=== PATIENT | male | born 2000 | race Caucasian/White ===

== ENCOUNTER 2020-08-01 10:31 | Inpatient (IN) | payer BC, MEDICAID ==
--- NOTE | 2020-08-01 10:35 | EDM.PDOC ---
ED HPI GENERAL MEDICAL PROBLEM - General Chief Complaint: Diabetic Complaint Stated Complaint: DIABETIC PROBLEM Time Seen by Provider: 08/01/20 10:35 Source of Information: Reports: Patient, Family, Old Records, RN, RN Notes Reviewed History Limitations: Reports: No Limitations - History of Present Illness INITIAL COMMENTS - FREE TEXT/NARRATIVE: Pt presents to ED via POV with c/o vomiting and hyperglycemia. Pt is a type 1 diabetic, and believes he is in DKA. Pt states that he started feeling nauseated last evening. Was able to have supper last night. Has been nauseated and v omiting this morning. Pt states that he has not checked his BG today. Pt states that his BG runs "high" when asked to elaborate he said 200's-300's. Pt also has c/o diffuse abdominal cramps and pain which precede vomiting. Onset: Gradual Onset Date: 07/31/20 Onset Time: 20:00 Duration: Getting Worse Location: Reports: Abdomen, Generalized Severity: Moderate Improves with: Reports: None Worsens with: Reports: None Associated Symptoms: Reports: No Other Symptoms Abdominal Pain Score (Numeric/FACES): 7 - Related Data Allergies Allergy/AdvReac Type Severity Reaction Status Date / Time No Known Allergies Allergy Verified 01/28/15 13:40 Home Meds: Home Meds Insulin Aspart [Novolog] 1 units SUBCUT QID 01/02/16 [History] Insulin Glarg,Human.Rec.Analog [LantUS Solostar] 12 units SUBCUT DAILY 01/02/16 [History] Methylphenidate HCl [Methylphenidate ER] 1 tab PO DAILY 01/02/16 [History] Past Medical History Endocrine/Metabolic History: Reports: Diabetes, Type I, IDDM, Obesity/BMI 30+, Other (See Below) (DKA) Social & Family History - Family History Family Medical History: No Pertinent Family History - Caffeine Use Caffeine Use: Reports: None - Sexual History Sexual History: Reports: None - Living Situation & Occupation Living situation: Reports: with Family Occupation: Student ED ROS GENERAL - Review of Systems Review Of Systems: Comprehensive ROS is negative, except as noted in HPI. ED EXAM GENERAL NO PERIP PULSE - Physical Exam Exam: See Below Exam Limited By: No Limitations General Appearance: Alert, WD/WN, No Apparent Distress, Other (Active emesis) Eye Exam: Bilateral Eye: EOMI, Normal Inspection Ears: Normal External Exam, Hearing Grossly Normal Nose: Normal Inspection, No Blood Throat/Mouth: Normal Lips, Normal Voice, No Airway Compromise, Other (Dry oral mucosa) Head: Atraumatic, Normocephalic Neck: Normal Inspection Respiratory/Chest: No Respiratory Distress, Lungs Clear, Normal Breath Sounds, No Accessory Muscle Use, Chest Non-Tender Cardiovascular: Regular Rate, Rhythm, No Edema, Tachycardia GI/Abdominal: Normal Bowel Sounds, Soft, Non-Tender, No Organomegaly, No Distention, No Abnormal Bruit, No Mass Back Exam: Normal Inspection Extremities: Normal Inspection, Normal Range of Motion, Non-Tender, Normal Capillary Refill, No Pedal Edema Neurological: Alert, Oriented, CN II-XII Intact, Normal Cognition, No Motor/Sensory Deficits Psychiatric: Normal Mood Skin Exam: Warm, Dry, Intact, Normal Color, No Rash Course - Vital Signs Last Recorded V/S: Last Vital Signs Temp 96.3 F L 08/01/20 10:39 Pulse 113 H 08/01/20 10:39 Resp 20 08/01/20 10:39 BP 138/84 08/01/20 10:39 Pulse Ox 100 08/01/20 10:39 - Orders/Labs/Meds Orders: Active Orders 24 hr Category Date Time Status Blood Glucose Check, Bedside [RC] ONETIME Care 08/01/20 10:45 Active Peripheral IV Care [RC] . DIRECTED Care 08/01/20 10:47 Active CULTURE BLOOD [BC] Stat Lab 08/01/20 10:42 Results CULTURE BLOOD [BC] Stat Lab 08/01/20 11:22 Received DRUG SCREEN URINE BIORAD [URCHEM] Stat Lab 08/01/20 10:46 Ordered UA RFX WILL AND CULT IF INDIC [URIN] Stat Lab 08/01/20 10:46 Ordered Sodium Chloride 0.9% [Normal Saline] 1,000 ml Med 08/01/20 10:46 Active IV .BOLUS Sodium Chloride 0.9% [Saline Flush] Med 08/01/20 10:46 Active 10 ml FLUSH ASDIRECTED PRN Blood Culture x2 Reflex Set [OM.PC] Stat Oth 08/01/20 10:45 Ordered Peripheral IV Insertion Adult [OM.PC] Stat Oth 08/01/20 10:46 Ordered Medication Orders Sodium Chloride (Normal Saline) 1,000 mls @ 999 mls/hr IV .BOLUS ONE Stop: 08/01/20 11:46 Last Admin: 08/01/20 10:49 Dose: 999 mls/hr Documented by: CONCETTA Sodium Chloride (Saline Flush) 10 ml FLUSH ASDIRECTED PRN PRN Reason: Keep Vein Open Last Admin: 08/01/20 10:50 Dose: 10 ml Documented by: CONCETTA Labs: Laboratory Tests 08/01/20 08/01/20 08/01/20 Range/Units 10:36 10:42 10:42 WBC 10.6 H (5.0-10.0) 10^3/uL RBC 5.58 (4.6-6.2) 10^6/uL Hgb 17.0 D (14.0-18.0) g/dL Hct 47.2 (40.0-54.0) % MCV 84.6 D (80-100) fL MCH 30.5 (27.0-34.0) pg MCHC 36.0 H (33.0-35.0) g/dL Plt Count 335 (150-450) 10^3/uL Neut % (Auto) 71.2 (42.2-75.2) % Lymph % (Auto) 21.1 (20.5-50.1) % [place] % (Auto) 5.3 (2-8) % Eos % (Auto) 0.8 L (1.0-3.0) % Baso % (Auto) 1.6 H (0.0-1.0) % ABG pH (7.35-7.45) ABG pCO2 (35-45) mmHg ABG pO2 (70-100) mmHg ABG HCO3 (22-26) mmol/L ABG O2 Saturation (95-100) % ABG Base Excess ((-2)-(+3)) mmol/L Lopez Test O2 Delivery Device Sodium 133 L (136-145) mmol/L Potassium 4.5 (3.5-5.1) mmol/L Chloride 92 L (98-107) mmol/L Carbon Dioxide 14 L (21-32) mmol/L Anion Gap 31.5 H (7-13) mEq/L BUN 19 H (7-18) mg/dL Creatinine 0.97 (0.70-1.30) mg/dL Est Cr Clr Drug Dosing 112.38 mL/min Estimated GFR (MDRD) > 60 BUN/Creatinine Ratio 19.6 (No establ ref range) Glucose 463 H* (74-99) mg/dL POC Glucose 454 H* (70-105) mg/dl Lactic Acid (0.4-2.0) mmol/L Calcium 9.6 (8.5-10.1) mg/dL Magnesium 1.8 (1.8-2.4) mg/dL Total Bilirubin 0.9 (0.2-1.0) mg/dL AST 19 (15-37) U/L ALT 33 (16-63) U/L Alkaline Phosphatase 129 H (46-116) U/L Troponin I < 0.017 (0.000-0.056) ng/mL Total Protein 8.6 H (6.4-8.2) g/dL Albumin 4.9 (3.4-5.0) g/dL Globulin 3.7 Albumin/Globulin Ratio 1.3 Amylase 23 L (25-115) U/L Lipase 36 L (73-393) U/L Ketones Small-20 mg/dl 08/01/20 08/01/20 Range/Units 10:42 10:59 WBC (5.0-10.0) 10^3/uL RBC (4.6-6.2) 10^6/uL Hgb (14.0-18.0) g/dL Hct (40.0-54.0) % MCV (80-100) fL MCH (27.0-34.0) pg MCHC (33.0-35.0) g/dL Plt Count (150-450) 10^3/uL Neut % (Auto) (42.2-75.2) % Lymph % (Auto) (20.5-50.1) % [place] % (Auto) (2-8) % Eos % (Auto) (1.0-3.0) % Baso % (Auto) (0.0-1.0) % ABG pH 7.19 L* (7.35-7.45) ABG pCO2 23 L (35-45) mmHg ABG pO2 117 H (70-100) mmHg ABG HCO3 8.2 L (22-26) mmol/L ABG O2 Saturation 97 (95-100) % ABG Base Excess -19 L ((-2)-(+3)) mmol/L Lopez Test Performed O2 Delivery Device Room air Sodium (136-145) mmol/L Potassium (3.5-5.1) mmol/L Chloride (98-107) mmol/L Carbon Dioxide (21-32) mmol/L Anion Gap (7-13) mEq/L BUN (7-18) mg/dL Creatinine (0.70-1.30) mg/dL Est Cr Clr Drug Dosing mL/min Estimated GFR (MDRD) BUN/Creatinine Ratio (No establ ref range) Glucose (74-99) mg/dL POC Glucose (70-105) mg/dl Lactic Acid 2.3 H* (0.4-2.0) mmol/L Calcium (8.5-10.1) mg/dL Magnesium (1.8-2.4) mg/dL Total Bilirubin (0.2-1.0) mg/dL AST (15-37) U/L ALT (16-63) U/L Alkaline Phosphatase (46-116) U/L Troponin I (0.000-0.056) ng/mL Total Protein (6.4-8.2) g/dL Albumin (3.4-5.0) g/dL Globulin Albumin/Globulin Ratio Amylase (25-115) U/L Lipase (73-393) U/L Ketones Meds: Medications Generic Name Dose Route Start Last Admin Trade Name Freq PRN Reason Stop Dose Admin Sodium Chloride 1,000 mls @ 999 mls/hr 08/01/20 10:46 08/01/20 10:49 Normal Saline IV 08/01/20 11:46 999 mls/hr .BOLUS ONE Administration Sodium Chloride 10 ml 08/01/20 10:46 08/01/20 10:50 Saline Flush FLUSH 10 ml ASDIRECTED PRN Administration Keep Vein Open Discontinued Medications Generic Name Dose Route Start Last Admin Trade Name Freq PRN Reason Stop Dose Admin Ondansetron HCl 4 mg 08/01/20 10:44 08/01/20 10:50 Zofran IVPUSH 08/01/20 10:45 4 mg ONETIME ONE Administration Ondansetron HCl 4 mg 08/01/20 10:46 08/01/20 10:49 Zofran IV 08/01/20 10:47 4 mg ONETIME ONE Administration Ondansetron HCl Confirm 08/01/20 10:45 08/01/20 10:52 Zofran Administered 08/01/20 10:46 Not Given Dose 4 mg .ROUTE .STK-MED ONE Sodium Bicarbonate 50 meq 08/01/20 11:02 08/01/20 11:14 Sodium Bicarbonate 8.4% IVPUSH 08/01/20 11:03 50 meq ONETIME ONE Administration Departure - Departure Time of Disposition: 11:40 (admitted to Dr. Galan) Disposition: Admitted As Inpatient 66 Condition: Fair, Serious Clinical Impression: Ketoacidosis due to type 1 diabetes mellitus Qualifiers: Diabetes mellitus complication detail: without coma Qualified Code(s): E10.10 - Type 1 diabetes mellitus with ketoacidosis without coma - Discharge Information *PRESCRIPTION DRUG MONITORING PROGRAM REVIEWED*: Not Applicable *COPY OF PRESCRIPTION DRUG MONITORING REPORT IN PATIENT JIMMIE: Not Applicable Forms: ED Department Discharge Sepsis Event Note (ED) - Focused Exam Vital Signs: Vital Signs Temp Pulse Resp BP Pulse Ox 08/01/20 10:39 96.3 F L 113 H 20 138/84 100 - My Orders Last 24 Hours: My Active Orders 08/01/20 10:42 CULTURE BLOOD [BC] Stat 08/01/20 10:45 Blood Glucose Check, Bedside [RC] ONETIME Blood Culture x2 Reflex Set [OM.PC] Stat 08/01/20 10:46 DRUG SCREEN URINE BIORAD [URCHEM] Stat UA RFX WILL AND CULT IF INDIC [URIN] Stat Sodium Chloride 0.9% [Normal Saline] 1,000 ml IV .BOLUS Sodium Chloride 0.9% [Saline Flush] 10 ml FLUSH ASDIRECTED PRN Peripheral IV Insertion Adult [OM.PC] Stat 08/01/20 10:47 Peripheral IV Care [RC] . DIRECTED 08/01/20 11:22 CULTURE BLOOD [BC] Stat - Assessment/Plan Last 24 Hours: My Active Orders 08/01/20 10:42 CULTURE BLOOD [BC] Stat 08/01/20 10:45 Blood Glucose Check, Bedside [RC] ONETIME Blood Culture x2 Reflex Set [OM.PC] Stat 08/01/20 10:46 DRUG SCREEN URINE BIORAD [URCHEM] Stat UA RFX WILL AND CULT IF INDIC [URIN] Stat Sodium Chloride 0.9% [Normal Saline] 1,000 ml IV .BOLUS Sodium Chloride 0.9% [Saline Flush] 10 ml FLUSH ASDIRECTED PRN Peripheral IV Insertion Adult [OM.PC] Stat 08/01/20 10:47 Peripheral IV Care [RC] . DIRECTED 08/01/20 11:22 CULTURE BLOOD [BC] Stat
[2020-08-01] MEDS ORDERED: Ondansetron 4 MG/2 ML SDV IVPUSH ONE (10:44)
[2020-08-01] MEDS ORDERED: Ondansetron 4 MG/2 ML SDV ONE (10:45)
[2020-08-01] MEDS ORDERED: Ondansetron 4 MG/2 ML SDV IV ONE (10:46)
[2020-08-01] MEDS ORDERED: Sodium Chloride 0.9% 10 ML Syringe FLUSH PRN (10:46)
[2020-08-01] MEDS ORDERED: Sodium Chloride 0.9% 1,000 ML IV ONE (10:46)
[2020-08-01 11:00] LABS: BASE EXCESS ARTERIAL -19 mmol/L ((-2)-(+3)); BICARBONATE,ARTERIAL 8.2 mmol/L (22-26); O2 DELIVERY DEVICE ROOM AIR; O2 SATURATION ARTERIAL 97 % (95-100); PCO2 ARTERIAL 23 mmHg (35-45); PO2 ARTERIAL 117 mmHg (70-100)
[2020-08-01 11:01] LABS: ALLEN TEST PERFORMED
[2020-08-01] MEDS ORDERED: Sodium Bicarbonate 8.4% 50 MEQ/50 ML Syringe IVPUSH ONE (11:02)
[2020-08-01 11:15] LABS: ANION GAP 31.5 mEq/L (7-13); CHLORIDE,CL 92 mmol/L (98-107); SODIUM,NA 133 mmol/L (136-145)
[2020-08-01] MEDS ORDERED: Ondansetron 4 MG/2 ML SDV IVPUSH PRN (12:49)
[2020-08-01] MEDS ORDERED: Sodium Chloride 0.9% 1,000 ML IV SCH (13:00)
--- NOTE | 2020-08-01 13:05 | PCM.HP ---
H&P History of Present Illness - General Date of Service: 08/01/20 Admit Problem/Dx: Admission Diagnosis/Problem Admission Diagnosis/Problem Diabetes mellitus type 1 Source of Information: Patient - History of Present Illness Initial Comments - Free Text/Narative: is a 19-year-old man with medical history of type 1 diabetes mellitus diagnosed 7 years ago. The patient presented to the emergency room because of nausea and vomiting which has been going on since yesterday. He has lost count of the nu mber of times he vomited. Has associated generalized body malaise and weakness. He came to the emergency room and was found to be hyperglycemic and also noted to have significant metabolic acidosis with pH of 7.19.patient admits to poor compliance with insulin use. Has missed some insulin doses especially the long acting. Abdominal Pain Score (Numeric/FACES): 7 - Related Data Allergies/Adverse Reactions: Allergies Allergy/AdvReac Type Severity Reaction Status Date / Time gluten AdvReac Abdominal Verified 08/01/20 12:38 Pain Home Medications: Home Meds Insulin Glargine,Hum.Rec.Anlog [Toujeo Solostar] 40 units SQ BEDTIME 08/01/20 [History] Insulin Lispro [HumaLOG] 15 units SQ TIDMEALS 08/01/20 [History] Past Medical History Endocrine/Metabolic History: Reports: Diabetes, Type I, IDDM, Obesity/BMI 30+, Other (See Below) (DKA) Social & Family History - Family History Family Medical History: No Pertinent Family History - Tobacco Use Tobacco Use Status *Q: Never Tobacco User Second Hand Smoke Exposure: No - Caffeine Use Caffeine Use: Reports: Coffee, Energy Drinks, Soda - Recreational Drug Use Recreational Drug Use: No - Sexual History Sexual History: Reports: None - Living Situation & Occupation Living situation: Reports: with Family Occupation: Student H&P Review of Systems - Review of Systems: Review Of Systems: See Below General: Reports: Malaise, Weakness, Fatigue HEENT: Reports: No Symptoms Pulmonary: Reports: No Symptoms Gastrointestinal: Reports: Nausea, Vomiting Neurological: Reports: Headache Exam - Exam Exam: See Below - Vital Signs Vital Signs: Last Vital Signs Temp 35.7 C L 08/01/20 10:39 Pulse 113 H 08/01/20 10:39 Resp 20 08/01/20 10:39 BP 138/84 08/01/20 10:39 Pulse Ox 100 08/01/20 10:39 Weight: 70.488 kg - Exam General: Alert, Oriented, Cooperative HEENT: PERRLA, Hearing Intact, Mucosa Moist & [place], Nares Patent, Normal Nasal Septum, Posterior Pharynx Clear, Conjunctiva Clear, EOMI, EACs Clear, TMs Clear Neck: Supple, Trachea Midline, 2 Lungs: Clear to Auscultation, Normal Respiratory Effort Cardiovascular: Regular Rate, Regular Rhythm GI/Abdominal Exam: Normal Bowel Sounds, Soft, Non-Tender, No Organomegaly, No Distention, No Abnormal Bruit, No Mass, Pelvis Stable Back Exam: Normal Inspection, Full Range of Motion, NT Extremities: Normal Inspection, Normal Range of Motion, Non-Tender, No Pedal Edema, Normal Capillary Refill - Patient Data Lab Results Last 24 hrs: Laboratory Results - last 24 hr 08/01/20 08/01/20 08/01/20 Range/Units 10:36 10:42 10:42 WBC 10.6 H (5.0-10.0) 10^3/uL RBC 5.58 (4.6-6.2) 10^6/uL Hgb 17.0 D (14.0-18.0) g/dL Hct 47.2 (40.0-54.0) % MCV 84.6 D (80-100) fL MCH 30.5 (27.0-34.0) pg MCHC 36.0 H (33.0-35.0) g/dL Plt Count 335 (150-450) 10^3/uL Neut % (Auto) 71.2 (42.2-75.2) % Lymph % (Auto) 21.1 (20.5-50.1) % Long % (Auto) 5.3 (2-8) % Eos % (Auto) 0.8 L (1.0-3.0) % Baso % (Auto) 1.6 H (0.0-1.0) % ABG pH (7.35-7.45) ABG pCO2 (35-45) mmHg ABG pO2 (70-100) mmHg ABG HCO3 (22-26) mmol/L ABG O2 Saturation (95-100) % ABG Base Excess ((-2)-(+3)) mmol/L Lopez Test O2 Delivery Device Sodium 133 L (136-145) mmol/L Potassium 4.5 (3.5-5.1) mmol/L Chloride 92 L (98-107) mmol/L Carbon Dioxide 14 L (21-32) mmol/L Anion Gap 31.5 H (7-13) mEq/L BUN 19 H (7-18) mg/dL Creatinine 0.97 (0.70-1.30) mg/dL Est Cr Clr Drug Dosing 112.38 mL/min Estimated GFR (MDRD) > 60 BUN/Creatinine Ratio 19.6 (No establ ref range) Glucose 463 H* (74-99) mg/dL POC Glucose 454 H* (70-105) mg/dl Lactic Acid (0.4-2.0) mmol/L Calcium 9.6 (8.5-10.1) mg/dL Magnesium 1.8 (1.8-2.4) mg/dL Total Bilirubin 0.9 (0.2-1.0) mg/dL AST 19 (15-37) U/L ALT 33 (16-63) U/L Alkaline Phosphatase 129 H (46-116) U/L Troponin I < 0.017 (0.000-0.056) ng/mL Total Protein 8.6 H (6.4-8.2) g/dL Albumin 4.9 (3.4-5.0) g/dL Globulin 3.7 Albumin/Globulin Ratio 1.3 Amylase 23 L (25-115) U/L Lipase 36 L (73-393) U/L Urine Color (YELLOW) Urine Appearance (CLEAR) Urine pH (5.0-9.0) Ur Specific [place] (1.005-1.030) Urine Protein (NEGATIVE) Urine Glucose (UA) (NEGATIVE) Urine Ketones (NEGATIVE) Urine Occult Blood (NEGATIVE) Urine Nitrite (NEGATIVE) Urine Bilirubin (NEGATIVE) Urine Urobilinogen (0.2-1.0) mg/dL Ur Leukocyte Esterase (NEGATIVE) Urine RBC /HPF Urine WBC (0-5/HPF) /HPF Ur Epithelial Cells (NOT SEEN) /HPF Urine Bacteria (0-FEW/HPF) /HPF Urine Opiates Screen (NEGATIVE) Ur Oxycodone Screen (NEGATIVE) Urine Methadone Screen (NEGATIVE) Ur Barbiturates Screen (NEGATIVE) U Tricyclic Antidepress (NEGATIVE) Ur Phencyclidine Scrn (NEGATIVE) Ur Amphetamine Screen (NEGATIVE) U Methamphetamines Scrn (NEGATIVE) Urine MDMA Screen (NEGATIVE) U Benzodiazepines Scrn (NEGATIVE) Urine Cocaine Screen (NEGATIVE) U Marijuana (THC) Screen (NEGATIVE) Ketones Small-20 mg/dl SARS CoV-2 RNA Rapid GEO (NEGATIVE) 08/01/20 08/01/20 08/01/20 Range/Units 10:42 10:59 11:43 WBC (5.0-10.0) 10^3/uL RBC (4.6-6.2) 10^6/uL Hgb (14.0-18.0) g/dL Hct (40.0-54.0) % MCV (80-100) fL MCH (27.0-34.0) pg MCHC (33.0-35.0) g/dL Plt Count (150-450) 10^3/uL Neut % (Auto) (42.2-75.2) % Lymph % (Auto) (20.5-50.1) % Long % (Auto) (2-8) % Eos % (Auto) (1.0-3.0) % Baso % (Auto) (0.0-1.0) % ABG pH 7.19 L* (7.35-7.45) ABG pCO2 23 L (35-45) mmHg ABG pO2 117 H (70-100) mmHg ABG HCO3 8.2 L (22-26) mmol/L ABG O2 Saturation 97 (95-100) % ABG Base Excess -19 L ((-2)-(+3)) mmol/L Lopez Test Performed O2 Delivery Device Room air Sodium (136-145) mmol/L Potassium (3.5-5.1) mmol/L Chloride (98-107) mmol/L Carbon Dioxide (21-32) mmol/L Anion Gap (7-13) mEq/L BUN (7-18) mg/dL Creatinine (0.70-1.30) mg/dL Est Cr Clr Drug Dosing mL/min Estimated GFR (MDRD) BUN/Creatinine Ratio (No establ ref range) Glucose (74-99) mg/dL POC Glucose (70-105) mg/dl Lactic Acid 2.3 H* (0.4-2.0) mmol/L Calcium (8.5-10.1) mg/dL Magnesium (1.8-2.4) mg/dL Total Bilirubin (0.2-1.0) mg/dL AST (15-37) U/L ALT (16-63) U/L Alkaline Phosphatase (46-116) U/L Troponin I (0.000-0.056) ng/mL Total Protein (6.4-8.2) g/dL Albumin (3.4-5.0) g/dL Globulin Albumin/Globulin Ratio Amylase (25-115) U/L Lipase (73-393) U/L Urine Color (YELLOW) Urine Appearance (CLEAR) Urine pH (5.0-9.0) Ur Specific [place] (1.005-1.030) Urine Protein (NEGATIVE) Urine Glucose (UA) (NEGATIVE) Urine Ketones (NEGATIVE) Urine Occult Blood (NEGATIVE) Urine Nitrite (NEGATIVE) Urine Bilirubin (NEGATIVE) Urine Urobilinogen (0.2-1.0) mg/dL Ur Leukocyte Esterase (NEGATIVE) Urine RBC /HPF Urine WBC (0-5/HPF) /HPF Ur Epithelial Cells (NOT SEEN) /HPF Urine Bacteria (0-FEW/HPF) /HPF Urine Opiates Screen (NEGATIVE) Ur Oxycodone Screen (NEGATIVE) Urine Methadone Screen (NEGATIVE) Ur Barbiturates Screen (NEGATIVE) U Tricyclic Antidepress (NEGATIVE) Ur Phencyclidine Scrn (NEGATIVE) Ur Amphetamine Screen (NEGATIVE) U Methamphetamines Scrn (NEGATIVE) Urine MDMA Screen (NEGATIVE) U Benzodiazepines Scrn (NEGATIVE) Urine Cocaine Screen (NEGATIVE) U Marijuana (THC) Screen (NEGATIVE) Ketones SARS CoV-2 RNA Rapid GEO Negative (NEGATIVE) 08/01/20 08/01/20 Range/Units 11:48 11:48 WBC (5.0-10.0) 10^3/uL RBC (4.6-6.2) 10^6/uL Hgb (14.0-18.0) g/dL Hct (40.0-54.0) % MCV (80-100) fL MCH (27.0-34.0) pg MCHC (33.0-35.0) g/dL Plt Count (150-450) 10^3/uL Neut % (Auto) (42.2-75.2) % Lymph % (Auto) (20.5-50.1) % Long % (Auto) (2-8) % Eos % (Auto) (1.0-3.0) % Baso % (Auto) (0.0-1.0) % ABG pH (7.35-7.45) ABG pCO2 (35-45) mmHg ABG pO2 (70-100) mmHg ABG HCO3 (22-26) mmol/L ABG O2 Saturation (95-100) % ABG Base Excess ((-2)-(+3)) mmol/L Lopez Test O2 Delivery Device Sodium (136-145) mmol/L Potassium (3.5-5.1) mmol/L Chloride (98-107) mmol/L Carbon Dioxide (21-32) mmol/L Anion Gap (7-13) mEq/L BUN (7-18) mg/dL Creatinine (0.70-1.30) mg/dL Est Cr Clr Drug Dosing mL/min Estimated GFR (MDRD) BUN/Creatinine Ratio (No establ ref range) Glucose (74-99) mg/dL POC Glucose (70-105) mg/dl Lactic Acid (0.4-2.0) mmol/L Calcium (8.5-10.1) mg/dL Magnesium (1.8-2.4) mg/dL Total Bilirubin (0.2-1.0) mg/dL AST (15-37) U/L ALT (16-63) U/L Alkaline Phosphatase (46-116) U/L Troponin I (0.000-0.056) ng/mL Total Protein (6.4-8.2) g/dL Albumin (3.4-5.0) g/dL Globulin Albumin/Globulin Ratio Amylase (25-115) U/L Lipase (73-393) U/L Urine Color Yellow (YELLOW) Urine Appearance Clear (CLEAR) Urine pH 5.5 (5.0-9.0) Ur Specific [place] >= 1.030 (1.005-1.030) Urine Protein 30 H (NEGATIVE) Urine Glucose (UA) 500 H (NEGATIVE) Urine Ketones >=160 H (NEGATIVE) Urine Occult Blood Negative (NEGATIVE) Urine Nitrite Negative (NEGATIVE) Urine Bilirubin Negative (NEGATIVE) Urine Urobilinogen 0.2 (0.2-1.0) mg/dL Ur Leukocyte Esterase Negative (NEGATIVE) Urine RBC 0-5 /HPF Urine WBC 0-5 (0-5/HPF) /HPF Ur Epithelial Cells Few (NOT SEEN) /HPF Urine Bacteria Not seen (0-FEW/HPF) /HPF Urine Opiates Screen Negative (NEGATIVE) Ur Oxycodone Screen Negative (NEGATIVE) Urine Methadone Screen Negative (NEGATIVE) Ur Barbiturates Screen Negative (NEGATIVE) U Tricyclic Antidepress Negative (NEGATIVE) Ur Phencyclidine Scrn Negative (NEGATIVE) Ur Amphetamine Screen Negative (NEGATIVE) U Methamphetamines Scrn Negative (NEGATIVE) Urine MDMA Screen Negative (NEGATIVE) U Benzodiazepines Scrn Negative (NEGATIVE) Urine Cocaine Screen Negative (NEGATIVE) U Marijuana (THC) Screen Negative (NEGATIVE) Ketones SARS CoV-2 RNA Rapid GEO (NEGATIVE) Result Diagrams: 08/01/20 10:42 08/01/20 10:42 Gerard Results Last 24 hrs: Microbiology 08/01/20 10:42 Anaerobic Blood Culture - Final Blood - Venous - Iv Start Problem List Initiated/Reviewed/Updated: Yes Orders Last 24hrs: Active Orders 24 hr Category Date Time Status Patient Status [ADT] Routine ADT 08/01/20 12:53 Ordered Cardiac Monitoring [RC] CONTINUOUS Care 08/01/20 12:54 Ordered Intake and Output [RC] QSHIFT Care 08/01/20 12:54 Ordered Oxygen Therapy [RC] PRN Care 08/01/20 12:53 Ordered Up ad Mirian [RC] ASDIRECTED Care 08/01/20 12:49 Ordered VTE/DVT Education [RC] PER UNIT ROUTINE Care 08/01/20 12:53 Ordered Vital Signs [RC] Q4H Care 08/01/20 12:53 Ordered BASIC METABOLIC PANEL,BMP [CHEM] Q6H Lab 08/01/20 15:57 Ordered BASIC METABOLIC PANEL,BMP [CHEM] Q6H Lab 08/01/20 21:57 Ordered BASIC METABOLIC PANEL,BMP [CHEM] Q6H Lab 08/02/20 03:57 Ordered CULTURE BLOOD [BC] Stat Lab 08/01/20 10:42 Results CULTURE BLOOD [BC] Stat Lab 08/01/20 11:22 Received MAGNESIUM [CHEM] Q6H Lab 08/01/20 15:58 Ordered MAGNESIUM [CHEM] Q6H Lab 08/01/20 21:58 Ordered MAGNESIUM [CHEM] Q6H Lab 08/02/20 03:58 Ordered PHOSPHORUS [CHEM] Routine Lab 08/02/20 06:59 Ordered Acetaminophen [TylenoL] Med 08/01/20 12:49 Ordered 650 mg PO Q4H PRN Enoxaparin [Lovenox] Med 08/02/20 09:00 Ordered 40 mg SUBCUT DAILY Insulin Regular in 0.9 % NACL @ 0.1 UNITS/KG/HR (100ml) Med 08/01/20 13:00 Ordered Insulin Regular in 0.9 % NACL [Myxredlin in NS 100 UNIT /100 ML] 100 unit in 100 ml IV TITRATE Ondansetron [Zofran] Med 08/01/20 12:49 Ordered 4 mg IVPUSH Q6H PRN Sodium Chloride 0.9% [Normal Saline] 1,000 ml Med 08/01/20 13:00 Ordered IV ASDIRECTED Sodium Chloride 0.9% [Saline Flush] Med 08/01/20 10:46 Active 10 ml FLUSH ASDIRECTED PRN Blood Culture x2 Reflex Set [OM.PC] Stat Oth 08/01/20 10:45 Ordered Peripheral IV Insertion Adult [OM.PC] Stat Oth 08/01/20 10:46 Ordered Resuscitation Status Routine Resus Stat 08/01/20 12:49 Ordered Medication Orders Acetaminophen (Tylenol) 650 mg PO Q4H PRN PRN Reason: Pain (Mild 1-3)/fever Enoxaparin Sodium (Lovenox) 40 mg SUBCUT DAILY HANG Sodium Chloride (Normal Saline) 1,000 mls @ 150 mls/hr IV ASDIRECTED HANG Insulin Regular in 0.9 % NACL (Myxredlin In Ns 100 Unit/100 Ml) 100 unit in 100 mls @ 7.049 mls/hr IV TITRATE HANG; Protocol Ondansetron HCl (Zofran) 4 mg IVPUSH Q6H PRN PRN Reason: Nausea/Vomiting Sodium Chloride (Saline Flush) 10 ml FLUSH ASDIRECTED PRN PRN Reason: Keep Vein Open Last Admin: 08/01/20 10:50 Dose: 10 ml Documented by: CONCETTA Assessment/Plan Comment:: assessment/plan: #. Diabetic ketoacidosis Patient has type 1 diabetes mellitus Has not been fully compliant with insulin use now presents with diabetic ketoacidosis #. Lactic acidosis Lactic acid is elevated up to 2.3 #. Anion gap metabolic acidosis anion gap is elevated up to 32 Plan: Admit patient to medical floor Start patient on continuous intravenous insulin Intravenous fluid with normal saline going at 1 50 mL an hour Obtain basic metabolic panel every 6 hours Obtain serum magnesium level every 6 hours
[2020-08-01] MEDS ORDERED: Metoclopramide 10 MG/2 ML SDV IVPUSH PRN (13:13)
[2020-08-01] MEDS: Acetaminophen 325 MG Tab PO PRN ×2 (13:28→21:22)
[2020-08-01 16:20] LABS: ANION GAP 26.3 mEq/L (7-13); CHLORIDE,CL 100 mmol/L (98-107); SODIUM,NA 136 mmol/L (136-145)
[2020-08-01] MEDS ORDERED: D5 1/2 NS w/ 10 mEq/L KCl 1,000 ML IV SCH (18:15)
[2020-08-01] MEDS ORDERED: 50% Dextrose in Water 50 ML Syringe ONE (20:43)
[2020-08-01] MEDS ORDERED: 50% Dextrose in Water 50 ML Syringe IVPUSH ONE (20:47)
[2020-08-01] MEDS ORDERED: Insulin Glarg,Human.Rec.Analog 100 Unit/ML SUBCUT ONE (20:49)
[2020-08-01] MEDS ORDERED: Glucagon,Human Recombinant 1 MG Vial IM PRN ×2 (20:49→20:54)
[2020-08-01] MEDS ORDERED: 50% Dextrose in Water 50 ML Syringe IV PRN (20:49)
[2020-08-01] MEDS: Sodium Chloride 0.45% with KCl 1,000 ML IV SCH (21:08)
[2020-08-01] MEDS: Insulin Lispro 100 Units/ML 3 ML Vial SUBCUT SCH (21:17)
[2020-08-01 21:18] LABS: ANION GAP 17.4 mEq/L (7-13); CHLORIDE,CL 100 mmol/L (98-107); SODIUM,NA 134 mmol/L (136-145)
[2020-08-02 04:25] LABS: ANION GAP 17.1 mEq/L (7-13); CHLORIDE,CL 99 mmol/L (98-107); SODIUM,NA 133 mmol/L (136-145)
[2020-08-02] MEDS ORDERED: Magnesium Sulfate/D5W 1 GM/100 ML BAG IV ONE (05:00)
[2020-08-02] MEDS ORDERED: Magnesium Sulfate/D5W 2 GM/200 ML BAG IV ONE ×2 (05:00→06:00)
[2020-08-02] MEDS ORDERED: Magnesium Sulfate/Water 2 GM/50 ML BAG IV ONE (05:15)
[2020-08-02] MEDS: Sodium Chloride 0.45% with KCl 1,000 ML IV SCH (07:11)
[2020-08-02] MEDS: Insulin Lispro 100 Units/ML 3 ML Vial SUBCUT SCH ×4 (08:31→12:01)
[2020-08-02] MEDS ORDERED: Enoxaparin 40 MG/0.4 ML Syringe SUBCUT SCH (09:00)
[2020-08-02 11:23] LABS: ANION GAP 15.8 mEq/L (7-13); CHLORIDE,CL 98 mmol/L (98-107); SODIUM,NA 133 mmol/L (136-145)
--- NOTE | 2020-08-02 12:35 | PCM.DCSUM1 ---
Discharge Summary - Hospital Course Free Text/Narrative:: h/o type 1 DM h/o poor compliance, BSs usually in the 2-300s presented with nausea, vomiting. found to have DKA with elevated anion gap and elevated lactic acid was treated with IVF, Insulin drip transitioned to SQ regimen has been tolerating PO intake will follow up with PMD discussed importance of DM control at his young age Diagnosis: Stroke: No - Discharge Data Discharge Date: 08/02/20 Discharge Disposition: Home, Self-Care 01 Condition: Good - Referral to Home Health Primary Care Physician: Bryn Munoz MD - Patient Instructions Diet: Diabetic Diet Activity: As Tolerated - Discharge Plan *PRESCRIPTION DRUG MONITORING PROGRAM REVIEWED*: Not Applicable *COPY OF PRESCRIPTION DRUG MONITORING REPORT IN PATIENT JIMMIE: Not Applicable Prescriptions/Med Rec: Metoclopramide HCl [Reglan] 10 mg PO Q6HR PRN #15 tablet PRN Reason: Nausea/Vomiting Home Medications: Home Meds Insulin Glargine,Hum.Rec.Anlog [Toujeo Solostar] 40 units SQ BEDTIME 08/01/20 [History] Insulin Lispro [HumaLOG] 15 units SQ TIDMEALS 08/01/20 [History] Metoclopramide HCl [Reglan] 10 mg PO Q6HR PRN #15 tablet 08/02/20 [Rx] Oxygen Therapy Mode: Room Air Patient Handouts: Diabetic Ketoacidosis, Type 1 Diabetes Mellitus, Self Care, Adult, Preventing Diabetic Ketoacidosis Referrals: Jean Koehler MD [Physician] - (in 2-3 days) - Discharge Summary/Plan Comment DC Time >30 min.: No - General Info Date of Service: 08/02/20 Functional Status: Reports: Pain Controlled - Review of Systems General: Denies: Fever, Weakness Pulmonary: Denies: Shortness of Breath Cardiovascular: Denies: Chest Pain Gastrointestinal: Denies: Abdominal Pain, Nausea, Vomiting Psychiatric: Denies: Confusion - Patient Data Vitals - Most Recent: Last Vital Signs Temp 98.0 F 08/02/20 07:51 Pulse 75 08/02/20 07:51 Resp 20 08/02/20 07:51 BP 112/56 L 08/02/20 07:51 Pulse Ox 100 08/02/20 07:51 Weight - Most Recent: 155 lb 6.4 oz I&O - Last 24 hours: Intake & Output 08/01/20 08/02/20 08/02/20 22:59 06:59 14:59 Intake Total 1200 1850 Balance 1200 1850 Lab Results - Last 24 hrs: Laboratory Results - last 24 hr 08/01/20 08/01/20 08/01/20 Range/Units 13:38 14:48 15:49 Sodium (136-145) mmol/L Potassium (3.5-5.1) mmol/L Chloride (98-107) mmol/L Carbon Dioxide (21-32) mmol/L Anion Gap (7-13) mEq/L BUN (7-18) mg/dL Creatinine (0.70-1.30) mg/dL Est Cr Clr Drug Dosing mL/min Estimated GFR (MDRD) Glucose (74-99) mg/dL POC Glucose 374 H 320 H 273 H (70-105) mg/dl Calcium (8.5-10.1) mg/dL Phosphorus (2.6-4.7) mg/dL Magnesium (1.8-2.4) mg/dL 08/01/20 08/01/20 08/01/20 Range/Units 15:59 16:50 18:03 Sodium 136 (136-145) mmol/L Potassium 4.3 (3.5-5.1) mmol/L Chloride 100 (98-107) mmol/L Carbon Dioxide 14 L (21-32) mmol/L Anion Gap 26.3 H (7-13) mEq/L BUN 15 (7-18) mg/dL Creatinine 0.88 (0.70-1.30) mg/dL Est Cr Clr Drug Dosing 134.61 mL/min Estimated GFR (MDRD) > 60 Glucose 248 H (74-99) mg/dL POC Glucose 191 H 161 H (70-105) mg/dl Calcium 8.6 (8.5-10.1) mg/dL Phosphorus (2.6-4.7) mg/dL Magnesium 1.7 L (1.8-2.4) mg/dL 08/01/20 08/01/20 08/01/20 Range/Units 19:21 20:32 20:56 Sodium 134 L (136-145) mmol/L Potassium 3.4 L (3.5-5.1) mmol/L Chloride 100 (98-107) mmol/L Carbon Dioxide 20 L (21-32) mmol/L Anion Gap 17.4 H (7-13) mEq/L BUN 13 (7-18) mg/dL Creatinine 0.78 (0.70-1.30) mg/dL Est Cr Clr Drug Dosing 151.87 mL/min Estimated GFR (MDRD) > 60 Glucose 126 H (74-99) mg/dL POC Glucose 132 H 63 L (70-105) mg/dl Calcium 8.4 L (8.5-10.1) mg/dL Phosphorus (2.6-4.7) mg/dL Magnesium (1.8-2.4) mg/dL 08/01/20 08/01/20 08/01/20 Range/Units 21:12 22:29 22:30 Sodium (136-145) mmol/L Potassium (3.5-5.1) mmol/L Chloride (98-107) mmol/L Carbon Dioxide (21-32) mmol/L Anion Gap (7-13) mEq/L BUN (7-18) mg/dL Creatinine (0.70-1.30) mg/dL Est Cr Clr Drug Dosing mL/min Estimated GFR (MDRD) Glucose (74-99) mg/dL POC Glucose 100 147 H (70-105) mg/dl Calcium (8.5-10.1) mg/dL Phosphorus (2.6-4.7) mg/dL Magnesium 1.5 L (1.8-2.4) mg/dL 08/02/20 08/02/20 08/02/20 Range/Units 04:00 04:00 04:00 Sodium 133 L (136-145) mmol/L Potassium 4.1 (3.5-5.1) mmol/L Chloride 99 (98-107) mmol/L Carbon Dioxide 21 (21-32) mmol/L Anion Gap 17.1 H (7-13) mEq/L BUN 12 (7-18) mg/dL Creatinine 0.68 L (0.70-1.30) mg/dL Est Cr Clr Drug Dosing 174.21 mL/min Estimated GFR (MDRD) > 60 Glucose 202 H (74-99) mg/dL POC Glucose (70-105) mg/dl Calcium 8.3 L (8.5-10.1) mg/dL Phosphorus 3.0 (2.6-4.7) mg/dL Magnesium 1.5 L (1.8-2.4) mg/dL 08/02/20 08/02/20 08/02/20 Range/Units 07:41 10:55 11:18 Sodium 133 L (136-145) mmol/L Potassium 3.8 (3.5-5.1) mmol/L Chloride 98 (98-107) mmol/L Carbon Dioxide 23 (21-32) mmol/L Anion Gap 15.8 H (7-13) mEq/L BUN 13 (7-18) mg/dL Creatinine 0.70 (0.70-1.30) mg/dL Est Cr Clr Drug Dosing 169.23 mL/min Estimated GFR (MDRD) > 60 Glucose 173 H (74-99) mg/dL POC Glucose 187 H 159 H (70-105) mg/dl Calcium 8.0 L (8.5-10.1) mg/dL Phosphorus (2.6-4.7) mg/dL Magnesium (1.8-2.4) mg/dL WILL Results - Last 24 hrs: Microbiology 08/01/20 11:22 Aerobic Blood Culture - Preliminary Blood - Arm, Right NO GROWTH AFTER 1 DAY Anaerobic Blood Culture - Preliminary NO GROWTH AFTER 1 DAY 08/01/20 10:42 Aerobic Blood Culture - Preliminary Blood - Venous - Iv Start NO GROWTH AFTER 1 DAY Anaerobic Blood Culture - Final Med Orders - Current: Current Medications Acetaminophen (Tylenol) 650 mg PO Q4H PRN PRN Reason: Pain (Mild 1-3)/fever Last Admin: 08/01/20 21:22 Dose: 650 mg Documented by: Dextrose/Water (Dextrose 50% In Water) 50 ml IV ASDIRECTED PRN PRN Reason: Hypoglycemia Enoxaparin Sodium (Lovenox) 40 mg SUBCUT DAILY [facility] Last Admin: 08/02/20 08:31 Dose: 40 mg Documented by: Glucagon (Glucagen) 1 mg IM ASDIRECTED PRN PRN Reason: Hypoglycemia Potassium Chloride/Sodium Chloride (1/2 Ns With 20 Meq Kcl) 1,000 mls @ 100 mls/hr IV ASDIRECTED HANG Last Admin: 08/02/20 07:11 Dose: 100 mls/hr Documented by: Insulin Glargine (Lantus) 40 unit SUBCUT BEDTIME [facility] Insulin Human Lispro (Humalog) 0 unit SUBCUT WITHMEALSANDBED [facility]; Protocol Last Admin: 08/02/20 12:00 Dose: 2 units Documented by: Insulin Human Lispro (Humalog) 15 unit SUBCUT TIDMEALS [facility] Last Admin: 08/02/20 12:01 Dose: 15 units Documented by: Metoclopramide HCl (Reglan) 10 mg IVPUSH Q6H PRN PRN Reason: Nausea and vomiting Last Admin: 08/01/20 13:30 Dose: 10 mg Documented by: Ondansetron HCl (Zofran) 4 mg IVPUSH Q6H PRN PRN Reason: Nausea/Vomiting Sodium Chloride (Saline Flush) 10 ml FLUSH ASDIRECTED PRN PRN Reason: Keep Vein Open Last Admin: 08/01/20 10:50 Dose: 10 ml Documented by: Discontinued Medications Dextrose/Water (Dextrose 50% In Water) Confirm Administered Dose 50 ml .ROUTE .STK-MED ONE Stop: 08/01/20 20:44 Last Admin: 08/01/20 21:17 Dose: Not Given Documented by: Dextrose/Water (Dextrose 50% In Water) 25 ml IVPUSH ONETIME ONE Stop: 08/01/20 20:48 Last Admin: 08/01/20 21:07 Dose: 25 ml Documented by: Glucagon (Glucagen) 1 mg IM ASDIRECTED PRN PRN Reason: Hypoglycemia Sodium Chloride (Normal Saline) 1,000 mls @ 999 mls/hr IV .BOLUS ONE Stop: 08/01/20 11:46 Last Admin: 08/01/20 10:49 Dose: 999 mls/hr Documented by: Sodium Chloride (Normal Saline) 1,000 mls @ 150 mls/hr IV ASDIRECTED [facility] Last Admin: 08/01/20 13:25 Dose: 150 mls/hr Documented by: Insulin Regular in 0.9 % NACL (Myxredlin In Ns 100 Unit/100 Ml) 100 unit in 100 mls @ 7.049 mls/hr IV TITRATE [facility]; Protocol Last Titration: 08/01/20 19:27 Dose: 0.25 units/kg/hr, 17.5 mls/hr Documented by: Potassium Chloride/Dextrose/Sod Cl (D5 1/2 Ns W/ 10 Meq/L Kcl) 1,000 mls @ 125 mls/hr IV ASDIRECTED [facility] Last Admin: 08/01/20 18:24 Dose: 125 mls/hr Documented by: Magnesium Sulfate (Magnesium Sulfate In Water 2 Gm/50 Ml) 2 gm in 50 mls @ 25 mls/hr IV ONETIME ONE Stop: 08/02/20 07:14 Last Admin: 08/02/20 05:18 Dose: 25 mls/hr Documented by: Insulin Glargine (Lantus) 40 unit SUBCUT ONETIME ONE Stop: 08/01/20 20:50 Last Admin: 08/01/20 21:09 Dose: 40 units Documented by: Ondansetron HCl (Zofran) 4 mg IVPUSH ONETIME ONE Stop: 08/01/20 10:45 Last Admin: 08/01/20 10:50 Dose: 4 mg Documented by: Ondansetron HCl (Zofran) 4 mg IV ONETIME ONE Stop: 08/01/20 10:47 Last Admin: 08/01/20 10:49 Dose: 4 mg Documented by: Ondansetron HCl (Zofran) Confirm Administered Dose 4 mg .ROUTE .STK-MED ONE Stop: 08/01/20 10:46 Last Admin: 08/01/20 10:52 Dose: Not Given Documented by: Sodium Bicarbonate (Sodium Bicarbonate 8.4%) 50 meq IVPUSH ONETIME ONE Stop: 08/01/20 11:03 Last Admin: 08/01/20 11:14 Dose: 50 meq Documented by: - Exam General: Reports: Alert, Oriented Neck: Reports: Supple Lungs: Reports: Clear to Auscultation, Normal Respiratory Effort Cardiovascular: Reports: Regular Rate, Regular Rhythm GI/Abdominal Exam: Normal Bowel Sounds, Soft, Non-Tender Skin: Reports: Warm, Dry, Intact Neurological: Reports: No New Focal Deficit Psy/Mental Status: Reports: Alert, Normal Affect, Normal Mood
[2020-08-02 12:52] VITALS: BP 114/58; PULSE 74
[2020-08-02] MEDS ORDERED: Insulin Glarg,Human.Rec.Analog 100 Unit/ML SUBCUT SCH (21:00)
== END 2020-08-02 13:05 | disposition home or self-care (01) | DRG 420 ==
LOC: DL.ED 10:31 → DL.MS 11:54 → UNDOADMIN 11:54 → DL.MS 12:53
PROVIDERS: ADMIT Hospitalist; ATTEND Hospitalist
DX: E10.10 Type 1 diabetes mellitus with ketoacidosis without coma (principal); Z91.018 Allergy to other foods; Z79.4 Long term (current) use of insulin; E66.9 Obesity, unspecified; Z28.82 Immunization not carried out because of caregiver refusal
CPT/HCPCS: 36415; 36600; 80048; 80053; 80305-QW; 81001; 82009; 82150; 82803; 82962; 83605; 83690; 83735; 84100; 84484; 85025; 87040; 96374; 96375; 99221; 99238; 99284; 99285-25; A9270-GY; J1650; J1815-GY; J2405; J2765; J3475; J3480; J7030; U0002

== ENCOUNTER 2020-12-26 11:10 | Observation (INO) | payer BC ==
[2020-12-26] MEDS ORDERED: Ondansetron 4 MG/2 ML SDV IVPUSH ONE (12:28)
[2020-12-26] MEDS ORDERED: Sodium Chloride 0.9% 1,000 ML IV ONE ×2 (12:28→13:35)
--- NOTE | 2020-12-26 12:36 | EDM.PDOC ---
ED HPI GENERAL MEDICAL PROBLEM - General Stated Complaint: DIABETES Time Seen by Provider: 12/26/20 12:34 Source of Information: Reports: Patient, RN, RN Notes Reviewed History Limitations: Reports: No Limitations - History of Present Illness INITIAL COMMENTS - FREE TEXT/NARRATIVE: Juan is a 20 y/o male with a history of DM I who presents to the ED via personal vehicle with complaints of hyperglycemia, nausea, and vomiting. The patient reports he had been drinking large quantities over the holiday weekend without eating much food; his last drink of alcohol was two nights ago. He began to feel nauseas yesterday and subsequently experienced multiple bouts of emesis. He has continued to take his Humalog and Toujeo while taking sips of Powerade, but has continued to feel a general malaise and anorexia. He denies fever, shaking chills, vision changes, chest pain, shortness of breath, abdominal pain, diarrhea, dysuria, or hematuria. He does attest to a sore throat which he feels is related to his frequent dry heaving and vomiting. He denies tobacco or recreational drug use. - Related Data Allergies Allergy/AdvReac Type Severity Reaction Status Date / Time gluten AdvReac Abdominal Verified 12/26/20 15:28 Pain Home Meds: Home Meds Insulin Glargine,Hum.Rec.Anlog [Toujeo Solostar] 40 units SQ BEDTIME 08/01/20 [History] Metoclopramide HCl [Reglan] 10 mg PO Q6HR PRN #15 tablet 08/02/20 [Rx] Insulin Lispro [Humalog Kwikpen U-100] 20 units SUBCUT TIDMEALS 12/26/20 [History] Past Medical History Gastrointestinal History: Reports: Celiac Disease Endocrine/Metabolic History: Reports: Diabetes, Type I, IDDM, Other (See Below) Other Endocrine/Metabolic History: DKA Dermatologic History: Reports: Eczema - Past Surgical History GI Surgical History: Reports: None Endocrine Surgical History: Reports: None Dermatological Surgical History: Reports: None Social & Family History - Family History Family Medical History: No Pertinent Family History - Caffeine Use Caffeine Use: Reports: Coffee, Energy Drinks, Soda - Sexual History Sexual History: Reports: None - Living Situation & Occupation Living situation: Reports: with Family Occupation: Student ED ROS GENERAL - Review of Systems Review Of Systems: Comprehensive ROS is negative, except as noted in HPI. ED EXAM GENERAL NO PERIP PULSE - Physical Exam Exam: See Below Exam Limited By: No Limitations General Appearance: Alert, No Apparent Distress Eye Exam: Bilateral Eye: EOMI, Normal Inspection, PERRL (3mm) Ears: Normal External Exam, Hearing Grossly Normal Nose: Normal Inspection, Normal Mucosa, No Blood Throat/Mouth: Normal Inspection, Normal Lips, Normal Teeth, Normal Gums, Normal Oropharynx, Normal Voice, No Airway Compromise Head: Atraumatic, Normocephalic Neck: Normal Inspection, Supple, Non-Tender, Full Range of Motion Respiratory/Chest: No Respiratory Distress, Lungs Clear, Normal Breath Sounds, No Accessory Muscle Use, Chest Non-Tender Cardiovascular: Normal Peripheral Pulses, Regular Rate, Rhythm, No Edema, No Gallop, No JVD, No Murmur, No Rub, Tachycardia GI/Abdominal: Soft, Non-Tender, No Distention, No Abnormal Bruit, No Mass, Pelvis Stable, Abnormal Bowel Sounds (Hyperactive bowel sounds) (Male) Exam: Deferred Rectal (Males) Exam: Deferred Back Exam: Normal Inspection, Full Range of Motion Extremities: Normal Inspection, Normal Range of Motion, Non-Tender, No Pedal Edema, Normal Capillary Refill Neurological: Alert, Oriented, CN II-XII Intact, Normal Cognition, Normal Gait, Normal Reflexes, No Motor/Sensory Deficits Psychiatric: Normal Affect, Normal Mood Skin Exam: Warm, Dry, Intact, Normal Color, No Rash. No: Cyanosis, Ecchymosis, Erythema, Jaundice, Mottled, Pallor Course - Vital Signs Last Recorded V/S: Last Vital Signs Temp 98.4 F 12/26/20 14:52 Pulse 83 12/26/20 14:52 Resp 18 12/26/20 14:52 BP 135/88 12/26/20 14:52 Pulse Ox 100 12/26/20 14:52 - Orders/Labs/Meds Orders: Active Orders 24 hr Category Date Time Status Dextrose 50% in Water Med 12/26/20 13:28 Active 50 ml IVPUSH Q15M PRN Glucagon,Human Recombinant [GlucaGen] Med 12/26/20 13:28 Active 1 mg IM Q15M PRN Medication Orders Acetaminophen (Acetaminophen 325 Mg Tab) 650 mg PO Q4H PRN PRN Reason: Pain (Mild 1-3)/fever Dextrose/Water (50% Dextrose In Water 50 Ml Syringe) 50 ml IVPUSH Q15M PRN PRN Reason: Hypoglycemia Glucagon (Glucagon,Human Recombinant 1 Mg Vial) 1 mg IM Q15M PRN PRN Reason: Hypoglycemia Sodium Chloride (Normal Saline) 1,000 mls @ 200 mls/hr IV ASDIRECTED [facility]ANG Last Admin: 12/26/20 16:23 Dose: 200 mls/hr Documented by: ALLISON Sodium Chloride (Normal Saline) 1,000 mls @ 1,997.78 mls/hr IV .BOLUS HANG Last Admin: 12/26/20 16:23 Dose: 1,997.78 mls/hr Documented by: ALLISON Insulin Regular in 0.9 % NACL (Myxredlin In Ns 100 Unit/100 Ml) 100 unit in 100 mls @ 5 mls/hr IV CONTINUOUS HANG Last Admin: 12/26/20 15:52 Dose: 5 mls/hr Documented by: ALLISON Cosigned by: UMAIR Lisinopril (Lisinopril 5 Mg Tab) 5 mg PO DAILY [facility] Ondansetron HCl (Ondansetron 4 Mg/2 Ml Sdv) 4 mg IVPUSH Q4H PRN PRN Reason: Nausea/Vomiting Sodium Chloride (Sodium Chloride 0.9% 10 Ml Syringe) 10 ml FLUSH ASDIRECTED PRN PRN Reason: Keep Vein Open Labs: Laboratory Tests 12/26/20 12/26/20 12/26/20 Range/Units 12:24 12:40 12:50 WBC 12.9 H (5.0-10.0) 10^3/uL RBC 5.60 (4.6-6.2) 10^6/uL Hgb 16.9 (14.0-18.0) g/dL Hct 47.2 (40.0-54.0) % MCV 84.3 (80-100) fL MCH 30.2 (27.0-34.0) pg MCHC 35.8 H (33.0-35.0) g/dL Plt Count 292 (150-450) 10^3/uL Neut % (Auto) 74.1 (42.2-75.2) % Lymph % (Auto) 16.7 L (20.5-50.1) % [place] % (Auto) 8.6 H (2-8) % Eos % (Auto) 0.3 L (1.0-3.0) % Baso % (Auto) 0.3 (0.0-1.0) % Sodium (136-145) mmol/L Potassium (3.5-5.1) mmol/L Chloride (98-107) mmol/L Carbon Dioxide (21-32) mmol/L Anion Gap (7-13) mEq/L BUN (7-18) mg/dL Creatinine (0.70-1.30) mg/dL Est Cr Clr Drug Dosing mL/min Estimated GFR (MDRD) BUN/Creatinine Ratio (No establ ref range) Glucose (70-99) mg/dL POC Glucose 374 H (70-99) mg/dL Lactic Acid (0.4-2.0) mmol/L Calcium (8.5-10.1) mg/dL Magnesium (1.8-2.4) mg/dL Total Bilirubin (0.2-1.0) mg/dL AST (15-37) U/L ALT (16-63) U/L Alkaline Phosphatase (46-116) U/L C-Reactive Protein (0.0-0.9) mg/dL Total Protein (6.4-8.2) g/dL Albumin (3.4-5.0) g/dL Globulin Albumin/Globulin Ratio Urine Color Yellow (YELLOW) Urine Appearance Clear (CLEAR) Urine pH 6.0 (5.0-9.0) Ur Specific [place] 1.025 (1.005-1.030) Urine Protein 30 H (NEGATIVE) Urine Glucose (UA) 500 H (NEGATIVE) Urine Ketones 80 H (NEGATIVE) Urine Occult Blood Negative (NEGATIVE) Urine Nitrite Negative (NEGATIVE) Urine Bilirubin Negative (NEGATIVE) Urine Urobilinogen 0.2 (0.2-1.0) mg/dL Ur Leukocyte Esterase Negative (NEGATIVE) Urine RBC 0-5 /HPF Urine WBC 0-5 (0-5/HPF) /HPF Ur Epithelial Cells Rare (NOT SEEN) /HPF Urine Bacteria Rare (0-FEW/HPF) /HPF Ethyl Alcohol (0) mg/dL Ketones SARS-CoV-2 RNA (GEO) (NEGATIVE) 12/26/20 12/26/20 12/26/20 Range/Units 12:50 12:50 13:34 WBC (5.0-10.0) 10^3/uL RBC (4.6-6.2) 10^6/uL Hgb (14.0-18.0) g/dL Hct (40.0-54.0) % MCV (80-100) fL MCH (27.0-34.0) pg MCHC (33.0-35.0) g/dL Plt Count (150-450) 10^3/uL Neut % (Auto) (42.2-75.2) % Lymph % (Auto) (20.5-50.1) % [place] % (Auto) (2-8) % Eos % (Auto) (1.0-3.0) % Baso % (Auto) (0.0-1.0) % Sodium 132 L (136-145) mmol/L Potassium 4.6 (3.5-5.1) mmol/L Chloride 94 L (98-107) mmol/L Carbon Dioxide 24 (21-32) mmol/L Anion Gap 18.6 H (7-13) mEq/L BUN 16 (7-18) mg/dL Creatinine 0.91 (0.70-1.30) mg/dL Est Cr Clr Drug Dosing 126.27 mL/min Estimated GFR (MDRD) > 60 BUN/Creatinine Ratio 17.6 (No establ ref range) Glucose 405 H* (70-99) mg/dL POC Glucose (70-99) mg/dL Lactic Acid 1.5 (0.4-2.0) mmol/L Calcium 9.2 (8.5-10.1) mg/dL Magnesium 2.1 (1.8-2.4) mg/dL Total Bilirubin 1.3 H (0.2-1.0) mg/dL AST 22 (15-37) U/L ALT 31 (16-63) U/L Alkaline Phosphatase 108 (46-116) U/L C-Reactive Protein < 0.2 (0.0-0.9) mg/dL Total Protein 8.0 (6.4-8.2) g/dL Albumin 4.2 (3.4-5.0) g/dL Globulin 3.8 Albumin/Globulin Ratio 1.1 Urine Color (YELLOW) Urine Appearance (CLEAR) Urine pH (5.0-9.0) Ur Specific [place] (1.005-1.030) Urine Protein (NEGATIVE) Urine Glucose (UA) (NEGATIVE) Urine Ketones (NEGATIVE) Urine Occult Blood (NEGATIVE) Urine Nitrite (NEGATIVE) Urine Bilirubin (NEGATIVE) Urine Urobilinogen (0.2-1.0) mg/dL Ur Leukocyte Esterase (NEGATIVE) Urine RBC /HPF Urine WBC (0-5/HPF) /HPF Ur Epithelial Cells (NOT SEEN) /HPF Urine Bacteria (0-FEW/HPF) /HPF Ethyl Alcohol < 3 (0) mg/dL Ketones Small-20 mg/dl SARS-CoV-2 RNA (GEO) Negative (NEGATIVE) Meds: Medications Generic Name Dose Route Start Last Admin Trade Name Amena PRN Reason Stop Dose Admin Acetaminophen 650 mg 12/26/20 14:52 Acetaminophen 325 Mg Tab PO Q4H PRN Pain (Mild 1-3)/fever Dextrose/Water 50 ml 12/26/20 13:28 50% Dextrose In Water 50 Ml Syringe IVPUSH Q15M PRN Hypoglycemia Glucagon 1 mg 12/26/20 13:28 Glucagon,Human Recombinant 1 Mg Vial IM Q15M PRN Hypoglycemia Sodium Chloride 1,000 mls @ 200 mls/hr 12/26/20 15:00 12/26/20 16:23 Normal Saline IV 200 mls/hr ASDIRECTED HANG Administration Sodium Chloride 1,000 mls @ 1,997.78 mls/hr 12/26/20 15:15 12/26/20 16:23 Normal Saline IV 1,997.78 mls/hr .BOLUS HANG Administration Insulin Regular in 0.9 % NACL 100 unit in 100 mls @ 5 mls/hr 12/26/20 15:30 12/26/20 15:52 Myxredlin In Ns 100 Unit/100 Ml IV 5 mls/hr CONTINUOUS HANG Administration Lisinopril 5 mg 12/27/20 09:00 Lisinopril 5 Mg Tab PO DAILY [facility] Ondansetron HCl 4 mg 12/26/20 17:00 Ondansetron 4 Mg/2 Ml Sdv IVPUSH Q4H PRN Nausea/Vomiting Sodium Chloride 10 ml 12/26/20 14:52 Sodium Chloride 0.9% 10 Ml Syringe FLUSH ASDIRECTED PRN Keep Vein Open Discontinued Medications Generic Name Dose Route Start Last Admin Trade Name Freq PRN Reason Stop Dose Admin Sodium Chloride 1,000 mls @ 999 mls/hr 12/26/20 12:28 12/26/20 13:54 Normal Saline IV 12/26/20 13:28 Infused .BOLUS ONE Infusion Sodium Chloride 1,000 mls @ 500 mls/hr 12/26/20 13:35 12/26/20 14:01 Normal Saline IV 12/26/20 15:34 500 mls/hr .BOLUS ONE Administration Insulin Regular in 0.9 % NACL 100 unit in 100 mls @ 7.5 drops/hr 12/26/20 15:00 Myxredlin In Ns 100 Unit/100 Ml IV CONTINUOUS HANG Insulin Human Regular 5 unit 12/26/20 13:28 12/26/20 14:01 Insulin Regular, Human 100 Units/Ml 3 Ml Vial IV 12/26/20 13:29 5 units ONETIME ONE Administration Ondansetron HCl 4 mg 12/26/20 12:28 12/26/20 12:54 Ondansetron 4 Mg/2 Ml Sdv IVPUSH 12/26/20 12:29 4 mg ONETIME ONE Administration - Re-Assessments/Exams Free Text/Narrative Re-Assessment/Exam: 12/26/20 NS 1L bolus and Zofran 4mg IVP administered while labs pending. Patient verbalized improvement in symptoms following medication administration. Will administer Humalin 5mg IVP. Serum ketones + Case discussed with Dr. Plunkett who kindly agreed to admit patient to observation. Findings of examination, lab work, and discussion with Dr. Plunkett reviewed with patient and mother. Patient verbalized understanding and agreement with the plan of care. Departure - Departure Time of Disposition: 14:41 Disposition: Refer to Observation Clinical Impression: Hyperglycemia Ketoacidosis due to type 1 diabetes mellitus Qualifiers: Diabetes mellitus complication detail: without coma Qualified Code(s): E10.10 - Type 1 diabetes mellitus with ketoacidosis without coma - Discharge Information Sepsis Event Note (ED) - Evaluation Sepsis Screening Result: No Definite Risk - Focused Exam Vital Signs: Vital Signs Temp Pulse Resp BP Pulse Ox 12/26/20 12:19 97.7 F 108 H 18 130/86 100 - My Orders Last 24 Hours: My Active Orders 12/26/20 13:28 Dextrose 50% in Water 50 ml IVPUSH Q15M PRN Glucagon,Human Recombinant [GlucaGen] 1 mg IM Q15M PRN - Assessment/Plan Last 24 Hours: My Active Orders 12/26/20 13:28 Dextrose 50% in Water 50 ml IVPUSH Q15M PRN Glucagon,Human Recombinant [GlucaGen] 1 mg IM Q15M PRN
[2020-12-26 13:18] LABS: ANION GAP 18.6 mEq/L (7-13); CHLORIDE,CL 94 mmol/L (98-107); SODIUM,NA 132 mmol/L (136-145)
[2020-12-26] MEDS ORDERED: Insulin Regular, Human 100 Units/ML 3 ML Vial IV ONE (13:28)
[2020-12-26] MEDS ORDERED: Glucagon,Human Recombinant 1 MG Vial IM PRN ×2 (13:28→19:09)
[2020-12-26] MEDS ORDERED: 50% Dextrose in Water 50 ML Syringe IVPUSH PRN ×2 (13:28→19:09)
[2020-12-26] MEDS ORDERED: Sodium Chloride 0.9% 10 ML Syringe FLUSH PRN (14:52)
[2020-12-26] MEDS ORDERED: Ondansetron 4 MG/2 ML SDV IVPUSH PRN ×2 (14:52→17:00)
[2020-12-26] MEDS ORDERED: Acetaminophen 325 MG Tab PO PRN (14:52)
[2020-12-26] MEDS ORDERED: Sodium Chloride 0.9% 1,000 ML IV SCH ×2 (15:00→15:15)
--- NOTE | 2020-12-26 15:01 | PCM.HP ---
H&P History of Present Illness - General Date of Service: 12/26/20 Admit Problem/Dx: Admission Diagnosis/Problem Admission Diagnosis/Problem Diabetic ketoacidosis - History of Present Illness Initial Comments - Free Text/Narative: The patient is a 20 old male who presents with "I was feeling unwell" since the weekend. He states that he was feeling concerned for DKA. When asked about his medication compliance, he indicates "I am compliant to the best my ability.". The patient Madelaine that this is the second episode of hospitalization for DKA in the year 2020. He indicates that he checks his blood sugar 3-4 times per day. In the days leading up to his hospitalization he indicates that he has been experiencing nausea and vomiting. He denies fever, rigors, cough, wheeze, polyuria, polydipsia, polyphagia. He indicates that he had an episode of abdominal cramping which is resolved. He presents for further evaluation - Related Data Allergies/Adverse Reactions: Allergies Allergy/AdvReac Type Severity Reaction Status Date / Time gluten AdvReac Abdominal Verified 12/26/20 12:19 Pain Home Medications: Home Meds RX: Insulin Glargine,Hum.Rec.Anlog [Toujeo Solostar] 40 units SQ BEDTIME 08/01/20 [History] RX: Insulin Lispro [HumaLOG] 40 units SQ TIDMEALS 08/01/20 [History] Metoclopramide HCl [Reglan] 10 mg PO Q6HR PRN #15 tablet 08/02/20 [Rx] Past Medical History HEENT History: Reports: None Cardiovascular History: Reports: None Respiratory History: Reports: None Gastrointestinal History: Reports: Celiac Disease Genitourinary History: Reports: None Musculoskeletal History: Reports: None Neurological History: Reports: None Psychiatric History: Reports: None Endocrine/Metabolic History: Reports: Diabetes, Type I, IDDM, Other (See Below) Other Endocrine/Metabolic History: DKA Hematologic History: Reports: None Immunologic History: Reports: None Oncologic (Cancer) History: Reports: None Dermatologic History: Reports: Eczema - Infectious Disease History Infectious Disease History: Reports: None - Past Surgical History GI Surgical History: Reports: None Endocrine Surgical History: Reports: None Dermatological Surgical History: Reports: None Social & Family History - Family History Family Medical History: No Pertinent Family History - Tobacco Use Tobacco Use Status *Q: Never Tobacco User - Caffeine Use Caffeine Use: Reports: Coffee - Alcohol Use Days Per Week of Alcohol Use: 1 Number of Drinks Per Day: 12 Total Drinks Per Week: 12 - Recreational Drug Use Recreational Drug Use: No - Sexual History Sexual History: Reports: None - Living Situation & Occupation Living situation: Reports: with Family Occupation: Student H&P Review of Systems - Review of Systems: Review Of Systems: See Below General: Reports: No Symptoms HEENT: Reports: No Symptoms Pulmonary: Reports: No Symptoms Cardiovascular: Reports: No Symptoms Gastrointestinal: Reports: Abdominal Pain Genitourinary: Reports: No Symptoms Musculoskeletal: Reports: No Symptoms Skin: Reports: No Symptoms Psychiatric: Reports: No Symptoms Neurological: Reports: No Symptoms Hematologic/Lymphatic: Reports: No Symptoms Immunologic: Reports: No Symptoms Exam - Exam Exam: See Below - Vital Signs Vital Signs: Last Vital Signs Temp 97.7 F 12/26/20 12:19 Pulse 108 H 12/26/20 12:19 Resp 18 12/26/20 12:19 BP 130/86 12/26/20 12:19 Pulse Ox 100 12/26/20 12:19 Weight: 152 lb - Exam General: Alert, Oriented, 4 HEENT: PERRLA, Hearing Intact, Mucosa Moist & [place], Nares Patent, Normal Nasal Septum, Posterior Pharynx Clear, Conjunctiva Clear, EOMI, EACs Clear, TMs Clear Neck: Supple, Trachea Midline, 2 Lungs: Clear to Auscultation, Normal Respiratory Effort Cardiovascular: Regular Rate, Regular Rhythm GI/Abdominal Exam: Normal Bowel Sounds, Soft, Non-Tender, No Organomegaly, No Distention, No Abnormal Bruit, No Mass, Pelvis Stable Back Exam: Normal Inspection, Full Range of Motion, NT Extremities: Normal Inspection, Normal Range of Motion, Non-Tender, No Pedal Edema, Normal Capillary Refill Peripheral Pulses: 2+: Carotid (L), Carotid (R), Brachial (L), Brachial (R), Radial (L), Radial (R), Femoral (L), Femoral (R), Popliteal (L), Popliteal (R), Posterior Tibial (L), Posterior Tibial (R), Dorsalis Pedis (L), Dorsalis Pedis (R) Skin: Warm, Dry, Intact Neurological: Cranial Nerves Intact, Reflexes Equal Bilateral Neuro Extensive - Mental Status: Alert, Oriented x3, Normal Mood/Affect, Normal Cognition Neuro Extensive - Motor, Sensory, Reflexes: CN II-XII Intact, Normal Gait, Normal Reflexes DTR: 2+: Bicep (L), Bicep (R), Tricep (L), Tricep (R), Patella (L), Patella (R), Achilles (L), Achilles (R) Psychiatric: Alert, Normal Affect, Normal Mood - Patient Data Lab Results Last 24 hrs: Laboratory Results - last 24 hr 12/26/20 12/26/20 12/26/20 Range/Units 12:24 12:40 12:50 WBC 12.9 H (5.0-10.0) 10^3/uL RBC 5.60 (4.6-6.2) 10^6/uL Hgb 16.9 (14.0-18.0) g/dL Hct 47.2 (40.0-54.0) % MCV 84.3 (80-100) fL MCH 30.2 (27.0-34.0) pg MCHC 35.8 H (33.0-35.0) g/dL Plt Count 292 (150-450) 10^3/uL Neut % (Auto) 74.1 (42.2-75.2) % Lymph % (Auto) 16.7 L (20.5-50.1) % [place] % (Auto) 8.6 H (2-8) % Eos % (Auto) 0.3 L (1.0-3.0) % Baso % (Auto) 0.3 (0.0-1.0) % Sodium (136-145) mmol/L Potassium (3.5-5.1) mmol/L Chloride (98-107) mmol/L Carbon Dioxide (21-32) mmol/L Anion Gap (7-13) mEq/L BUN (7-18) mg/dL Creatinine (0.70-1.30) mg/dL Est Cr Clr Drug Dosing mL/min Estimated GFR (MDRD) BUN/Creatinine Ratio (No establ ref range) Glucose (70-99) mg/dL POC Glucose 374 H (70-99) mg/dL Lactic Acid (0.4-2.0) mmol/L Calcium (8.5-10.1) mg/dL Magnesium (1.8-2.4) mg/dL Total Bilirubin (0.2-1.0) mg/dL AST (15-37) U/L ALT (16-63) U/L Alkaline Phosphatase (46-116) U/L C-Reactive Protein (0.0-0.9) mg/dL Total Protein (6.4-8.2) g/dL Albumin (3.4-5.0) g/dL Globulin Albumin/Globulin Ratio Urine Color Yellow (YELLOW) Urine Appearance Clear (CLEAR) Urine pH 6.0 (5.0-9.0) Ur Specific [place] 1.025 (1.005-1.030) Urine Protein 30 H (NEGATIVE) Urine Glucose (UA) 500 H (NEGATIVE) Urine Ketones 80 H (NEGATIVE) Urine Occult Blood Negative (NEGATIVE) Urine Nitrite Negative (NEGATIVE) Urine Bilirubin Negative (NEGATIVE) Urine Urobilinogen 0.2 (0.2-1.0) mg/dL Ur Leukocyte Esterase Negative (NEGATIVE) Urine RBC 0-5 /HPF Urine WBC 0-5 (0-5/HPF) /HPF Ur Epithelial Cells Rare (NOT SEEN) /HPF Urine Bacteria Rare (0-FEW/HPF) /HPF Ethyl Alcohol (0) mg/dL Ketones SARS-CoV-2 RNA (GEO) (NEGATIVE) 12/26/20 12/26/20 12/26/20 Range/Units 12:50 12:50 13:34 WBC (5.0-10.0) 10^3/uL RBC (4.6-6.2) 10^6/uL Hgb (14.0-18.0) g/dL Hct (40.0-54.0) % MCV (80-100) fL MCH (27.0-34.0) pg MCHC (33.0-35.0) g/dL Plt Count (150-450) 10^3/uL Neut % (Auto) (42.2-75.2) % Lymph % (Auto) (20.5-50.1) % [place] % (Auto) (2-8) % Eos % (Auto) (1.0-3.0) % Baso % (Auto) (0.0-1.0) % Sodium 132 L (136-145) mmol/L Potassium 4.6 (3.5-5.1) mmol/L Chloride 94 L (98-107) mmol/L Carbon Dioxide 24 (21-32) mmol/L Anion Gap 18.6 H (7-13) mEq/L BUN 16 (7-18) mg/dL Creatinine 0.91 (0.70-1.30) mg/dL Est Cr Clr Drug Dosing 126.27 mL/min Estimated GFR (MDRD) > 60 BUN/Creatinine Ratio 17.6 (No establ ref range) Glucose 405 H* (70-99) mg/dL POC Glucose (70-99) mg/dL Lactic Acid 1.5 (0.4-2.0) mmol/L Calcium 9.2 (8.5-10.1) mg/dL Magnesium 2.1 (1.8-2.4) mg/dL Total Bilirubin 1.3 H (0.2-1.0) mg/dL AST 22 (15-37) U/L ALT 31 (16-63) U/L Alkaline Phosphatase 108 (46-116) U/L C-Reactive Protein < 0.2 (0.0-0.9) mg/dL Total Protein 8.0 (6.4-8.2) g/dL Albumin 4.2 (3.4-5.0) g/dL Globulin 3.8 Albumin/Globulin Ratio 1.1 Urine Color (YELLOW) Urine Appearance (CLEAR) Urine pH (5.0-9.0) Ur Specific [place] (1.005-1.030) Urine Protein (NEGATIVE) Urine Glucose (UA) (NEGATIVE) Urine Ketones (NEGATIVE) Urine Occult Blood (NEGATIVE) Urine Nitrite (NEGATIVE) Urine Bilirubin (NEGATIVE) Urine Urobilinogen (0.2-1.0) mg/dL Ur Leukocyte Esterase (NEGATIVE) Urine RBC /HPF Urine WBC (0-5/HPF) /HPF Ur Epithelial Cells (NOT SEEN) /HPF Urine Bacteria (0-FEW/HPF) /HPF Ethyl Alcohol < 3 (0) mg/dL Ketones Small-20 mg/dl SARS-CoV-2 RNA (GEO) Negative (NEGATIVE) Result Diagrams: 12/26/20 12:50 12/26/20 12:50 Problem List Initiated/Reviewed/Updated: Yes Orders Last 24hrs: Active Orders 24 hr Category Date Time Status Admission Diagnosis [ADT] Stat ADT 12/26/20 13:39 Ordered Patient Status [ADT] Routine ADT 12/26/20 13:39 Active Antiembolic Devices [RC] PER UNIT ROUTINE Care 12/26/20 14:53 Ordered Blood Glucose Check, Bedside [RC] Q1H Care 12/26/20 14:52 Ordered Peripheral IV Care [RC] . DIRECTED Care 12/26/20 14:53 Ordered Up ad Mirian [RC] ASDIRECTED Care 12/26/20 14:52 Ordered Vital Signs [RC] Q4H Care 12/26/20 14:52 Ordered Nothing per Oral Now Diet [DIET] Diet 12/26/20 Lunch Ordered COMPREHENSIVE METABOLIC PN,CMP [CHEM] Q4H Lab 12/26/20 18:00 Ordered COMPREHENSIVE METABOLIC PN,CMP [CHEM] Q4H Lab 12/26/20 22:00 Ordered COMPREHENSIVE METABOLIC PN,CMP [CHEM] Q4H Lab 12/27/20 02:00 Ordered COMPREHENSIVE METABOLIC PN,CMP [CHEM] Q4H Lab 12/27/20 06:00 Ordered COMPREHENSIVE METABOLIC PN,CMP [CHEM] Q4H Lab 12/27/20 10:00 Ordered Acetaminophen [TylenoL] Med 12/26/20 14:52 Ordered 650 mg PO Q4H PRN Dextrose 50% in Water Med 12/26/20 13:28 Active 50 ml IVPUSH Q15M PRN Glucagon,Human Recombinant [GlucaGen] Med 12/26/20 13:28 Active 1 mg IM Q15M PRN Insulin Regular in 0.9 % NACL [Myxredlin in NS 100 UNIT Med 12/26/20 15:00 Ordered /100 ML] 100 unit in 100 ml IV CONTINUOUS Ondansetron [Zofran] Med 12/26/20 14:52 Ordered 4 mg IVPUSH Q4H PRN Sodium Chloride 0.9% [Normal Saline] 1,000 ml Med 12/26/20 13:35 Active IV .BOLUS Sodium Chloride 0.9% [Normal Saline] 1,000 ml Med 12/26/20 15:00 Ordered IV ASDIRECTED Sodium Chloride 0.9% [Normal Saline] 500 ml Med 12/26/20 15:00 Ordered IV .BOLUS Sodium Chloride 0.9% [Saline Flush] Med 12/26/20 14:52 Ordered 10 ml FLUSH ASDIRECTED PRN lisinopriL [Prinivil] Med 12/27/20 09:00 Ordered 5 mg PO DAILY Peripheral IV Insertion Adult [OM.PC] Routine Oth 12/26/20 14:52 Ordered Sequential Compression Device [OM.PC] Per Unit Routine Oth 12/26/20 14:53 Ordered Resuscitation Status Routine Resus Stat 12/26/20 14:52 Ordered Medication Orders Acetaminophen (Acetaminophen 325 Mg Tab) 650 mg PO Q4H PRN PRN Reason: Pain (Mild 1-3)/fever Dextrose/Water (50% Dextrose In Water 50 Ml Syringe) 50 ml IVPUSH Q15M PRN PRN Reason: Hypoglycemia Glucagon (Glucagon,Human Recombinant 1 Mg Vial) 1 mg IM Q15M PRN PRN Reason: Hypoglycemia Sodium Chloride (Normal Saline) 1,000 mls @ 500 mls/hr IV .BOLUS ONE Stop: 12/26/20 15:34 Last Admin: 12/26/20 14:01 Dose: 500 mls/hr Documented by: ILIA Sodium Chloride (Normal Saline) 1,000 mls @ 200 mls/hr IV ASDIRECTED HANG Sodium Chloride (Normal Saline) 500 mls @ 999 mls/hr IV .BOLUS HANG Insulin Regular in 0.9 % NACL (Myxredlin In Ns 100 Unit/100 Ml) 100 unit in 100 mls @ 7.5 drops/hr IV CONTINUOUS HANG Lisinopril (Lisinopril 5 Mg Tab) 5 mg PO DAILY HANG Ondansetron HCl (Ondansetron 4 Mg/2 Ml Sdv) 4 mg IVPUSH Q4H PRN PRN Reason: Nausea/Vomiting Sodium Chloride (Sodium Chloride 0.9% 10 Ml Syringe) 10 ml FLUSH ASDIRECTED PRN PRN Reason: Keep Vein Open Assessment/Plan Comment:: Surgical History: Never Family History: Diabetes, hypertension Social History: Tobacco: Former smoker Alcohol: Rare Caffeine: Coffee, tea, cola Drugs: Past marijuana use. Denies any other drug use past or present Allergies: Gluten. No known drug allergies Code Status: Full Assessment / Plan: DKA/diabetes. Fingerstick glucose every 1 hours. CMP every 4 hours. IV normal saline 200 mL/h plus insulin drip at 7.5 units/h plus lisinopril 5 mg p.o. daily for nephro protection History of medical noncompliance. Patient will be counseled regard medical compliance Eczema Celiac disease DVT prophylaxis. Bilateral SCD Disposition: The patient will be a candidate for discharge within 24 hours. At the time of admission, the patient's home medications were pending input in the EMR/BHR system. Once their input, they will be reviewed and reconciled END OF DOCTOR EMAMIS HISTORY AND PHYSICAL / CONSULTATION NOTE
[2020-12-26 18:39] LABS: ANION GAP 13.5 mEq/L (7-13); CHLORIDE,CL 104 mmol/L (98-107); SODIUM,NA 140 mmol/L (136-145)
[2020-12-26] MEDS ORDERED: Insulin Glarg,Human.Rec.Analog 100 Unit/ML SUBCUT ONE (19:09)
--- NOTE | 2020-12-26 19:14 | PCM.DCSUM1 ---
Discharge Summary - Hospital Course Free Text/Narrative:: START OF DOCTOR EMAM[facility] DISCHARGE SUMMARY Date of Admission: December 26, 2020 Date of Discharge: 7:13 PM on December 26, 2020 Primary Diagnosis: DKAresolved Secondary Diagnosis: Diabetes History of medical noncompliance Eczema Celiac disease Consultations: None Condition on Discharge: Fair Disposition: The patient will be advised follow-up with his primary care physician or a provider as needed upon discharge Discharge Medications: Reglan 10 mg p.o. every 6 hours as needed nausea/vomiting Insulin lispro 20 units subcutaneously 3 times daily with meals Toujeo 40 units subcutaneously nightly Lisinopril 5 mg p.o. daily. This being prescribed for nephro protection by virtue of the patient being diabetic and it is not for hypertension END OF DOCTOR EMAMIS DISCHARGE SUMMARY - Discharge Data Discharge Date: 12/26/20 Discharge Disposition: Home, Self-Care 01 Condition: Fair - Referral to Home Health Primary Care Physician: Jose Koehler MD - Patient Instructions Diet: Diabetic Diet Activity: As Tolerated - Discharge Plan Prescriptions/Med Rec: lisinopriL [Prinivil] 5 mg PO DAILY 30 Days #30 tablet Home Medications: Home Meds Insulin Glargine,Hum.Rec.Anlog [Toujeo Solostar] 40 units SQ BEDTIME 08/01/20 [History] Metoclopramide HCl [Reglan] 10 mg PO Q6HR PRN #15 tablet 08/02/20 [Rx] Insulin Lispro [Humalog Kwikpen U-100] 20 units SUBCUT TIDMEALS 12/26/20 [History] lisinopriL [Prinivil] 5 mg PO DAILY 30 Days #30 tablet 12/26/20 [Rx] Forms: ED Department Discharge Referrals: Jean Koehler MD [Primary Care Provider] - - Discharge Summary/Plan Comment DC Time >30 min.: Yes - General Info Date of Service: 12/26/20 - Review of Systems General: Reports: No Symptoms HEENT: Reports: No Symptoms Pulmonary: Reports: No Symptoms Cardiovascular: Reports: No Symptoms Gastrointestinal: Reports: No Symptoms Genitourinary: Reports: No Symptoms Musculoskeletal: Reports: No Symptoms Skin: Reports: No Symptoms Neurological: Reports: No Symptoms Psychiatric: Reports: No Symptoms - Patient Data Vitals - Most Recent: Last Vital Signs Temp 98.4 F 07/06/21 14:52 Pulse 83 12/26/20 14:52 Resp 18 12/26/20 14:52 BP 135/88 12/26/20 14:52 Pulse Ox 100 12/26/20 14:52 Weight - Most Recent: 154 lb 1.65 oz Lab Results - Last 24 hrs: Laboratory Results - last 24 hr 12/26/20 12/26/20 12/26/20 Range/Units 12:24 12:40 12:50 WBC 12.9 H (5.0-10.0) 10^3/uL RBC 5.60 (4.6-6.2) 10^6/uL Hgb 16.9 (14.0-18.0) g/dL Hct 47.2 (40.0-54.0) % MCV 84.3 (80-100) fL MCH 30.2 (27.0-34.0) pg MCHC 35.8 H (33.0-35.0) g/dL Plt Count 292 (150-450) 10^3/uL Neut % (Auto) 74.1 (42.2-75.2) % Lymph % (Auto) 16.7 L (20.5-50.1) % [place] % (Auto) 8.6 H (2-8) % Eos % (Auto) 0.3 L (1.0-3.0) % Baso % (Auto) 0.3 (0.0-1.0) % Sodium (136-145) mmol/L Potassium (3.5-5.1) mmol/L Chloride (98-107) mmol/L Carbon Dioxide (21-32) mmol/L Anion Gap (7-13) mEq/L BUN (7-18) mg/dL Creatinine (0.70-1.30) mg/dL Est Cr Clr Drug Dosing mL/min Estimated GFR (MDRD) BUN/Creatinine Ratio (No establ ref range) Glucose (70-99) mg/dL POC Glucose 374 H (70-99) mg/dL Lactic Acid (0.4-2.0) mmol/L Calcium (8.5-10.1) mg/dL Magnesium (1.8-2.4) mg/dL Total Bilirubin (0.2-1.0) mg/dL AST (15-37) U/L ALT (16-63) U/L Alkaline Phosphatase (46-116) U/L C-Reactive Protein (0.0-0.9) mg/dL Total Protein (6.4-8.2) g/dL Albumin (3.4-5.0) g/dL Globulin Albumin/Globulin Ratio Urine Color Yellow (YELLOW) Urine Appearance Clear (CLEAR) Urine pH 6.0 (5.0-9.0) Ur Specific [place] 1.025 (1.005-1.030) Urine Protein 30 H (NEGATIVE) Urine Glucose (UA) 500 H (NEGATIVE) Urine Ketones 80 H (NEGATIVE) Urine Occult Blood Negative (NEGATIVE) Urine Nitrite Negative (NEGATIVE) Urine Bilirubin Negative (NEGATIVE) Urine Urobilinogen 0.2 (0.2-1.0) mg/dL Ur Leukocyte Esterase Negative (NEGATIVE) Urine RBC 0-5 /HPF Urine WBC 0-5 (0-5/HPF) /HPF Ur Epithelial Cells Rare (NOT SEEN) /HPF Urine Bacteria Rare (0-FEW/HPF) /HPF Ethyl Alcohol (0) mg/dL Ketones SARS-CoV-2 RNA (GEO) (NEGATIVE) 12/26/20 12/26/20 12/26/20 Range/Units 12:50 12:50 13:34 WBC (5.0-10.0) 10^3/uL RBC (4.6-6.2) 10^6/uL Hgb (14.0-18.0) g/dL Hct (40.0-54.0) % MCV (80-100) fL MCH (27.0-34.0) pg MCHC (33.0-35.0) g/dL Plt Count (150-450) 10^3/uL Neut % (Auto) (42.2-75.2) % Lymph % (Auto) (20.5-50.1) % [place] % (Auto) (2-8) % Eos % (Auto) (1.0-3.0) % Baso % (Auto) (0.0-1.0) % Sodium 132 L (136-145) mmol/L Potassium 4.6 (3.5-5.1) mmol/L Chloride 94 L (98-107) mmol/L Carbon Dioxide 24 (21-32) mmol/L Anion Gap 18.6 H (7-13) mEq/L BUN 16 (7-18) mg/dL Creatinine 0.91 (0.70-1.30) mg/dL Est Cr Clr Drug Dosing 126.27 mL/min Estimated GFR (MDRD) > 60 BUN/Creatinine Ratio 17.6 (No establ ref range) Glucose 405 H* (70-99) mg/dL POC Glucose (70-99) mg/dL Lactic Acid 1.5 (0.4-2.0) mmol/L Calcium 9.2 (8.5-10.1) mg/dL Magnesium 2.1 (1.8-2.4) mg/dL Total Bilirubin 1.3 H (0.2-1.0) mg/dL AST 22 (15-37) U/L ALT 31 (16-63) U/L Alkaline Phosphatase 108 (46-116) U/L C-Reactive Protein < 0.2 (0.0-0.9) mg/dL Total Protein 8.0 (6.4-8.2) g/dL Albumin 4.2 (3.4-5.0) g/dL Globulin 3.8 Albumin/Globulin Ratio 1.1 Urine Color (YELLOW) Urine Appearance (CLEAR) Urine pH (5.0-9.0) Ur Specific [place] (1.005-1.030) Urine Protein (NEGATIVE) Urine Glucose (UA) (NEGATIVE) Urine Ketones (NEGATIVE) Urine Occult Blood (NEGATIVE) Urine Nitrite (NEGATIVE) Urine Bilirubin (NEGATIVE) Urine Urobilinogen (0.2-1.0) mg/dL Ur Leukocyte Esterase (NEGATIVE) Urine RBC /HPF Urine WBC (0-5/HPF) /HPF Ur Epithelial Cells (NOT SEEN) /HPF Urine Bacteria (0-FEW/HPF) /HPF Ethyl Alcohol < 3 (0) mg/dL Ketones Small-20 mg/dl SARS-CoV-2 RNA (GEO) Negative (NEGATIVE) 12/26/20 12/26/20 12/26/20 Range/Units 15:02 15:52 16:47 WBC (5.0-10.0) 10^3/uL RBC (4.6-6.2) 10^6/uL Hgb (14.0-18.0) g/dL Hct (40.0-54.0) % MCV (80-100) fL MCH (27.0-34.0) pg MCHC (33.0-35.0) g/dL Plt Count (150-450) 10^3/uL Neut % (Auto) (42.2-75.2) % Lymph % (Auto) (20.5-50.1) % [place] % (Auto) (2-8) % Eos % (Auto) (1.0-3.0) % Baso % (Auto) (0.0-1.0) % Sodium (136-145) mmol/L Potassium (3.5-5.1) mmol/L Chloride (98-107) mmol/L Carbon Dioxide (21-32) mmol/L Anion Gap (7-13) mEq/L BUN (7-18) mg/dL Creatinine (0.70-1.30) mg/dL Est Cr Clr Drug Dosing mL/min Estimated GFR (MDRD) BUN/Creatinine Ratio (No establ ref range) Glucose (70-99) mg/dL POC Glucose 290 H 261 H 234 H (70-99) mg/dL Lactic Acid (0.4-2.0) mmol/L Calcium (8.5-10.1) mg/dL Magnesium (1.8-2.4) mg/dL Total Bilirubin (0.2-1.0) mg/dL AST (15-37) U/L ALT (16-63) U/L Alkaline Phosphatase (46-116) U/L C-Reactive Protein (0.0-0.9) mg/dL Total Protein (6.4-8.2) g/dL Albumin (3.4-5.0) g/dL Globulin Albumin/Globulin Ratio Urine Color (YELLOW) Urine Appearance (CLEAR) Urine pH (5.0-9.0) Ur Specific [place] (1.005-1.030) Urine Protein (NEGATIVE) Urine Glucose (UA) (NEGATIVE) Urine Ketones (NEGATIVE) Urine Occult Blood (NEGATIVE) Urine Nitrite (NEGATIVE) Urine Bilirubin (NEGATIVE) Urine Urobilinogen (0.2-1.0) mg/dL Ur Leukocyte Esterase (NEGATIVE) Urine RBC /HPF Urine WBC (0-5/HPF) /HPF Ur Epithelial Cells (NOT SEEN) /HPF Urine Bacteria (0-FEW/HPF) /HPF Ethyl Alcohol (0) mg/dL Ketones SARS-CoV-2 RNA (GEO) (NEGATIVE) 12/26/20 12/26/20 12/26/20 Range/Units 17:41 18:03 18:49 WBC (5.0-10.0) 10^3/uL RBC (4.6-6.2) 10^6/uL Hgb (14.0-18.0) g/dL Hct (40.0-54.0) % MCV (80-100) fL MCH (27.0-34.0) pg MCHC (33.0-35.0) g/dL Plt Count (150-450) 10^3/uL Neut % (Auto) (42.2-75.2) % Lymph % (Auto) (20.5-50.1) % [place] % (Auto) (2-8) % Eos % (Auto) (1.0-3.0) % Baso % (Auto) (0.0-1.0) % Sodium 140 (136-145) mmol/L Potassium 3.5 (3.5-5.1) mmol/L Chloride 104 (98-107) mmol/L Carbon Dioxide 26 (21-32) mmol/L Anion Gap 13.5 H (7-13) mEq/L BUN 15 (7-18) mg/dL Creatinine 0.80 (0.70-1.30) mg/dL Est Cr Clr Drug Dosing 145.63 mL/min Estimated GFR (MDRD) > 60 BUN/Creatinine Ratio 18.8 (No establ ref range) Glucose 184 H (70-99) mg/dL POC Glucose 185 H 133 H (70-99) mg/dL Lactic Acid (0.4-2.0) mmol/L Calcium 7.9 L (8.5-10.1) mg/dL Magnesium (1.8-2.4) mg/dL Total Bilirubin 0.8 (0.2-1.0) mg/dL AST 16 (15-37) U/L ALT 24 (16-63) U/L Alkaline Phosphatase 78 (46-116) U/L C-Reactive Protein (0.0-0.9) mg/dL Total Protein 6.0 L (6.4-8.2) g/dL Albumin 3.2 L (3.4-5.0) g/dL Globulin 2.8 Albumin/Globulin Ratio 1.14 Urine Color (YELLOW) Urine Appearance (CLEAR) Urine pH (5.0-9.0) Ur Specific [place] (1.005-1.030) Urine Protein (NEGATIVE) Urine Glucose (UA) (NEGATIVE) Urine Ketones (NEGATIVE) Urine Occult Blood (NEGATIVE) Urine Nitrite (NEGATIVE) Urine Bilirubin (NEGATIVE) Urine Urobilinogen (0.2-1.0) mg/dL Ur Leukocyte Esterase (NEGATIVE) Urine RBC /HPF Urine WBC (0-5/HPF) /HPF Ur Epithelial Cells (NOT SEEN) /HPF Urine Bacteria (0-FEW/HPF) /HPF Ethyl Alcohol (0) mg/dL Ketones SARS-CoV-2 RNA (GEO) (NEGATIVE) Med Orders - Current: Current Medications Acetaminophen (Acetaminophen 325 Mg Tab) 650 mg PO Q4H PRN PRN Reason: Pain (Mild 1-3)/fever Dextrose/Water (50% Dextrose In Water 50 Ml Syringe) 50 ml IVPUSH Q15M PRN PRN Reason: Hypoglycemia Glucagon (Glucagon,Human Recombinant 1 Mg Vial) 1 mg IM Q15M PRN PRN Reason: Hypoglycemia Sodium Chloride (Normal Saline) 1,000 mls @ 200 mls/hr IV ASDIRECTED [facility] Last Admin: 12/26/20 16:23 Dose: 200 mls/hr Documented by: Sodium Chloride (Normal Saline) 1,000 mls @ 1,997.78 mls/hr IV .BOLUS [facility] Last Admin: 12/26/20 16:23 Dose: 999 mls/hr Documented by: Insulin Regular in 0.9 % NACL (Myxredlin In Ns 100 Unit/100 Ml) 100 unit in 100 mls @ 5 mls/hr IV CONTINUOUS [facility] Last Admin: 12/26/20 15:52 Dose: 5 mls/hr Documented by: Lisinopril (Lisinopril 5 Mg Tab) 5 mg PO DAILY HANG Ondansetron HCl (Ondansetron 4 Mg/2 Ml Sdv) 4 mg IVPUSH Q4H PRN PRN Reason: Nausea/Vomiting Sodium Chloride (Sodium Chloride 0.9% 10 Ml Syringe) 10 ml FLUSH ASDIRECTED PRN PRN Reason: Keep Vein Open Discontinued Medications Dextrose/Water (50% Dextrose In Water 50 Ml Syringe) 50 ml IVPUSH Q15M PRN PRN Reason: Hypoglycemia Sodium Chloride (Normal Saline) 1,000 mls @ 999 mls/hr IV .BOLUS ONE Stop: 12/26/20 13:28 Last Infusion: 12/26/20 13:54 Dose: Infused Documented by: Sodium Chloride (Normal Saline) 1,000 mls @ 500 mls/hr IV .BOLUS ONE Stop: 12/26/20 15:34 Last Infusion: 12/26/20 16:23 Dose: Infused Documented by: Insulin Regular in 0.9 % NACL (Myxredlin In Ns 100 Unit/100 Ml) 100 unit in 100 mls @ 7.5 drops/hr IV CONTINUOUS HANG Insulin Glargine (Insulin Glarg,Human.Rec.Analog 100 Unit/Ml) 40 unit SUBCUT ONETIME ONE Stop: 12/26/20 19:10 Insulin Human Regular (Insulin Regular, Human 100 Units/Ml 3 Ml Vial) 5 unit IV ONETIME ONE Stop: 12/26/20 13:29 Last Admin: 12/26/20 14:01 Dose: 5 units Documented by: Ondansetron HCl (Ondansetron 4 Mg/2 Ml Sdv) 4 mg IVPUSH ONETIME ONE Stop: 12/26/20 12:29 Last Admin: 12/26/20 12:54 Dose: 4 mg Documented by: - Exam General: Reports: Alert, Oriented HEENT: Reports: Pupils Equal, Pupils Reactive, EOMI, Mucous Membr. Moist/Orwell Neck: Reports: Supple Lungs: Reports: Clear to Auscultation Cardiovascular: Reports: Regular Rate, Regular Rhythm GI/Abdominal Exam: Normal Bowel Sounds, Soft, Non-Tender, No Organomegaly, No Distention, No Abnormal Bruit, No Mass, Pelvis Stable Back Exam: Reports: Normal Inspection, Full Range of Motion Extremities: Normal Inspection, Normal Range of Motion, Non-Tender, No Pedal Edema, Normal Capillary Refill Skin: Reports: Warm, Dry, Intact Wound/Incisions: Reports: Healing Well Neurological: Reports: No New Focal Deficit Psy/Mental Status: Reports: Alert, Normal Affect, Normal Mood
[2020-12-26 20:06] VITALS: BP 138/86; PULSE 86
[2020-12-27] MEDS ORDERED: Lisinopril 5 MG Tab PO SCH (09:00)
== END 2020-12-26 20:35 | disposition home or self-care (01) ==
LOC: DL.ED 11:10 → DL.MS 13:39
PROVIDERS: ADMIT Internal Medicine; ATTEND Internal Medicine
DX: E10.10 Type 1 diabetes mellitus with ketoacidosis without coma (principal); E10.65 Type 1 diabetes mellitus with hyperglycemia; L30.9 Dermatitis, unspecified; K90.0 Celiac disease; Z20.822 Contact with and (suspected) exposure to COVID-19; Z79.4 Long term (current) use of insulin; Z91.018 Allergy to other foods
CPT/HCPCS: 36415; 80053; 80307; 81001; 82009; 82947; 83605; 83735; 85025; 86140; J1815-GY; J2405; J7030; U0002

== ENCOUNTER 2021-05-24 09:41 | Emergency (ER) | payer BC ==
[2021-05-24] MEDS ORDERED: 50% Dextrose in Water 50 ML Syringe ONE (10:03)
[2021-05-24] MEDS ORDERED: Ondansetron 4 MG/2 ML SDV ONE (10:03)
[2021-05-24] MEDS ORDERED: Sodium Chloride 0.9% 1,000 ML IV ONE (10:06)
[2021-05-24] MEDS ORDERED: 50% Dextrose in Water 50 ML Syringe IVPUSH ONE (10:06)
[2021-05-24] MEDS ORDERED: Ondansetron 4 MG/2 ML SDV IV ONE (10:06)
[2021-05-24] MEDS ORDERED: Sodium Chloride 0.9% 10 ML Syringe FLUSH PRN (10:08)
--- NOTE | 2021-05-24 10:10 | EDM.PDOC ---
ED HPI GENERAL MEDICAL PROBLEM - General Chief Complaint: Gastrointestinal Problem Stated Complaint: VERY DIZZY, NAUSEOUS, HEADACHE Time Seen by Provider: 05/24/21 09:55 Source of Information: Reports: Patient, Old Records, RN, RN Notes Reviewed History Limitations: Reports: No Limitations - History of Present Illness INITIAL COMMENTS - FREE TEXT/NARRATIVE: Pt presents to ED via POV with c/o generalized weakness, dizziness, and upset stomach. Pt states that he has been nauseated and weak for a few days, but hasn't felt "well in general" for 2 weeks. 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 He has had higher than usual blood sugars starting about 3 weeks ago, and he "ignored the highs" and ran uncontrolled for a couple of weeks. Since he got his sugars back down he has "felt like crap". Pt admits to about 15 or 20lbs of wt loss over the past 2 months. Pt states that his sugars have been relatively controlled this last week. Pt states it has been difficult to eat and drink because of upset stomach and nausea. Pt does not have an insulin pump and does inject insulin as Rx. Pt denies pain at this time. Onset: Gradual Duration: Week(s): (2+), Constant Location: Reports: Abdomen, Generalized Quality: Reports: Other (Mild intermittent abdominal cramping.) Severity: Moderate Improves with: Reports: None Worsens with: Reports: Eating Associated Symptoms: Reports: No Other Symptoms Treatments RN PROGRESSIVE CARE: Reports: Insulin - Related Data Allergies Allergy/AdvReac Type Severity Reaction Status Date / Time gluten AdvReac Abdominal Verified 05/24/21 10:10 Pain Home Meds: Home Meds Insulin Glargine,Hum.Rec.Anlog [Claus Dawn] 40 units SQ BEDTIME 08/01/20 [History] Metoclopramide HCl [Reglan] 10 mg PO Q6HR PRN #15 tablet 08/02/20 [Rx] Insulin Lispro [Humalog Kwikpen U-100] 20 units SUBCUT TIDMEALS 12/26/20 [History] lisinopriL [Prinivil] 5 mg PO DAILY 30 Days #30 tablet 12/26/20 [Rx] Sertraline [Zoloft] 50 mg PO DAILY 05/24/21 [History] Past Medical History HEENT History: Reports: None Cardiovascular History: Reports: None Respiratory History: Reports: None Gastrointestinal History: Reports: Celiac Disease Genitourinary History: Reports: None Musculoskeletal History: Reports: None Neurological History: Reports: None Psychiatric History: Reports: None Endocrine/Metabolic History: Reports: Diabetes, Type I, IDDM, Other (See Below) Other Endocrine/Metabolic History: DKA Hematologic History: Reports: None Immunologic History: Reports: None Oncologic (Cancer) History: Reports: None Dermatologic History: Reports: Eczema - Infectious Disease History Infectious Disease History: Reports: None - Past Surgical History Head Surgeries/Procedures: Reports: None GI Surgical History: Reports: EGD Endocrine Surgical History: Reports: None Dermatological Surgical History: Reports: None Social & Family History - Family History Family Medical History: No Pertinent Family History Cardiac: Reports: Arrhythmia, CAD, Hypertension Respiratory: Reports: Sleep Apnea Endocrine/Metabolic: Reports: Diabetes, type II, Hypothyroidism - Caffeine Use Caffeine Use: Reports: Coffee, Soda, Tea - Sexual History Sexual History: Reports: None - Living Situation & Occupation Living situation: Reports: with Family Occupation: Student ED ROS GENERAL - Review of Systems Review Of Systems: Comprehensive ROS is negative, except as noted in HPI. ED EXAM GENERAL NO PERIP PULSE - Physical Exam Exam: See Below Exam Limited By: No Limitations General Appearance: Alert, WD/WN, No Apparent Distress Eye Exam: Bilateral Eye: Normal Inspection Nose: Normal Inspection Throat/Mouth: Normal Inspection, Normal Lips, Normal Teeth, Normal Gums, Normal Oropharynx, Normal Voice, No Airway Compromise Head: Atraumatic, Normocephalic Neck: Normal Inspection, Supple, Non-Tender, Full Range of Motion Respiratory/Chest: No Respiratory Distress, Lungs Clear, Normal Breath Sounds, No Accessory Muscle Use, Chest Non-Tender Cardiovascular: Normal Peripheral Pulses, Regular Rate, Rhythm, No Edema, No Gallop, No JVD, No Murmur, No Rub GI/Abdominal: Normal Bowel Sounds, Soft, Non-Tender, No Organomegaly, No Distention, No Abnormal Bruit, No Mass Back Exam: Normal Inspection Extremities: Normal Inspection Neurological: Alert, Oriented, No Motor/Sensory Deficits Psychiatric: Flat Affect Skin Exam: Warm, Dry, Intact, Normal Color, No Rash Course - Vital Signs Last Recorded V/S: Last Vital Signs Temp 97.8 F 05/24/21 10:15 Pulse 75 05/24/21 10:15 Resp 20 12/02/21 10:15 BP 105/58 L 05/24/21 10:15 Pulse Ox 98 05/24/21 10:15 - Orders/Labs/Meds Orders: Active Orders 24 hr Category Date Time Status Blood Glucose Check, Bedside [] ONETIME Care 05/24/21 10:07 Active Blood Glucose Check, Bedside [] ONETIME Care 05/24/21 10:54 Active POC Glucose [Blood Glucose Check, Bedside] [] ONETIME Care 05/24/21 10:26 Active POC Glucose [Blood Glucose Check, Bedside] [] ONETIME Care 05/24/21 11:30 Active Peripheral IV Care [] . DIRECTED Care 05/24/21 10:08 Active CULTURE BLOOD [BC] Stat Lab 05/24/21 10:03 Received CULTURE BLOOD [BC] Stat Lab 05/24/21 11:05 Received DRUG SCREEN URINE BIORAD [URCHEM] Stat Lab 05/24/21 10:07 Ordered UA RFX WILL AND CULT IF INDIC [URIN] Stat Lab 05/24/21 10:08 Ordered Sodium Chloride 0.9% [Saline Flush] Med 05/24/21 10:08 Active 10 ml FLUSH ASDIRECTED PRN Blood Culture x2 Reflex Set [OM.PC] Stat Oth 05/24/21 10:07 Ordered Peripheral IV Insertion Adult [OM.PC] Stat Oth 05/24/21 10:07 Ordered Medication Orders Sodium Chloride (Sodium Chloride 0.9% 10 Ml Syringe) 10 ml FLUSH ASDIRECTED PRN PRN Reason: Keep Vein Open Last Admin: 05/24/21 10:13 Dose: 10 ml Documented by: [email or web address] Labs: Laboratory Tests 05/24/21 05/24/21 05/24/21 Range/Units 09:56 10:03 10:03 WBC 7.6 (5.0-10.0) 10^3/uL RBC 5.12 (4.6-6.2) 10^6/uL Hgb 15.1 D (14.0-18.0) g/dL Hct 44.1 (40.0-54.0) % MCV 86.1 (80-100) fL MCH 29.5 (27.0-34.0) pg MCHC 34.2 (33.0-35.0) g/dL Plt Count 359 (150-450) 10^3/uL Neut % (Auto) 51.5 (42.2-75.2) % Lymph % (Auto) 35.3 (20.5-50.1) % Benzie % (Auto) 8.1 H (2-8) % Eos % (Auto) 3.9 H (1.0-3.0) % Baso % (Auto) 1.2 H (0.0-1.0) % Sodium 141 (136-145) mmol/L Potassium 4.7 (3.5-5.1) mmol/L Chloride 102 (98-107) mmol/L Carbon Dioxide 30 (21-32) mmol/L Anion Gap 13.7 H (7-13) mEq/L BUN 11 (7-18) mg/dL Creatinine 0.65 L (0.70-1.30) mg/dL Est Cr Clr Drug Dosing 181.28 mL/min Estimated GFR (MDRD) > 60 BUN/Creatinine Ratio 16.9 (No establ ref range) Glucose 61 L (70-99) mg/dL POC Glucose 56 L (70-99) mg/dL Lactic Acid (0.4-2.0) mmol/L Calcium 8.6 (8.5-10.1) mg/dL Phosphorus 4.7 (2.6-4.7) mg/dL Magnesium 1.9 (1.8-2.4) mg/dL Total Bilirubin 0.5 (0.2-1.0) mg/dL AST 24 (15-37) U/L ALT 22 (16-63) U/L Alkaline Phosphatase 68 (46-116) U/L Troponin I High Sens < 4 (<=76) pg/mL C-Reactive Protein < 3.0 H (0.0-0.9) mg/dL Total Protein 7.2 (6.4-8.2) g/dL Albumin 3.8 (3.4-5.0) g/dL Globulin 3.4 Albumin/Globulin Ratio 1.1 Amylase 31 (25-115) U/L Lipase 17 L (73-393) U/L Ketones Negative Influenza Type A RNA (NEGATIVE) Influenza Type B RNA (NEGATIVE) SARS-CoV-2 RNA (GEO) (NEGATIVE) 05/24/21 05/24/21 05/24/21 Range/Units 10:03 10:03 10:25 WBC (5.0-10.0) 10^3/uL RBC (4.6-6.2) 10^6/uL Hgb (14.0-18.0) g/dL Hct (40.0-54.0) % MCV (80-100) fL MCH (27.0-34.0) pg MCHC (33.0-35.0) g/dL Plt Count (150-450) 10^3/uL Neut % (Auto) (42.2-75.2) % Lymph % (Auto) (20.5-50.1) % Benzie % (Auto) (2-8) % Eos % (Auto) (1.0-3.0) % Baso % (Auto) (0.0-1.0) % Sodium (136-145) mmol/L Potassium (3.5-5.1) mmol/L Chloride (98-107) mmol/L Carbon Dioxide (21-32) mmol/L Anion Gap (7-13) mEq/L BUN (7-18) mg/dL Creatinine (0.70-1.30) mg/dL Est Cr Clr Drug Dosing mL/min Estimated GFR (MDRD) BUN/Creatinine Ratio (No establ ref range) Glucose (70-99) mg/dL POC Glucose 131 H (70-99) mg/dL Lactic Acid 1.2 (0.4-2.0) mmol/L Calcium (8.5-10.1) mg/dL Phosphorus (2.6-4.7) mg/dL Magnesium (1.8-2.4) mg/dL Total Bilirubin (0.2-1.0) mg/dL AST (15-37) U/L ALT (16-63) U/L Alkaline Phosphatase (46-116) U/L Troponin I High Sens (<=76) pg/mL C-Reactive Protein (0.0-0.9) mg/dL Total Protein (6.4-8.2) g/dL Albumin (3.4-5.0) g/dL Globulin Albumin/Globulin Ratio Amylase (25-115) U/L Lipase (73-393) U/L Ketones Influenza Type A RNA Negative (NEGATIVE) Influenza Type B RNA Negative (NEGATIVE) SARS-CoV-2 RNA (GEO) Negative (NEGATIVE) Meds: Medications Generic Name Dose Route Start Last Admin Trade Name Freq PRN Reason Stop Dose Admin Sodium Chloride 10 ml 05/24/21 10:08 05/24/21 10:13 Sodium Chloride 0.9% 10 Ml Syringe FLUSH 10 ml ASDIRECTED PRN Administration Keep Vein Open Discontinued Medications Generic Name Dose Route Start Last Admin Trade Name Amena PRN Reason Stop Dose Admin Dextrose/Water Confirm 05/24/21 10:03 05/24/21 10:14 50% Dextrose In Water 50 Ml Syringe Administered 05/24/21 10:04 Not Given Dose 50 ml .ROUTE .STK-MED ONE Dextrose/Water 50 ml 05/24/21 10:06 05/24/21 10:05 50% Dextrose In Water 50 Ml Syringe IVPUSH 05/24/21 10:07 50 ml ONETIME ONE Administration Sodium Chloride 1,000 mls @ 999 mls/hr 05/24/21 10:06 05/24/21 10:05 Normal Saline IV 05/24/21 11:06 999 mls/hr .BOLUS ONE Administration Ondansetron HCl 4 mg 05/24/21 10:06 05/24/21 10:13 Ondansetron 4 Mg/2 Ml Sdv IV 05/24/21 10:07 4 mg ONETIME ONE Administration Ondansetron HCl Confirm 05/24/21 10:03 05/24/21 10:13 Ondansetron 4 Mg/2 Ml Sdv Administered 05/24/21 10:04 Not Given Dose 4 mg .ROUTE .STK-MED ONE Departure - Departure Time of Disposition: 11:28 Disposition: Home, Self-Care 01 Condition: Good Clinical Impression: Hypoglycemia Nausea & vomiting Qualifiers: Vomiting type: unspecified Vomiting Intractability: non-intractable Qualified Code(s): R11.2 - Nausea with vomiting, unspecified - Discharge Information *PRESCRIPTION DRUG MONITORING PROGRAM REVIEWED*: Not Applicable *COPY OF PRESCRIPTION DRUG MONITORING REPORT IN PATIENT JIMMIE: Not Applicable Instructions: Hypoglycemia, Gastroparesis Forms: ED Department Discharge Additional Instructions: Rx: Reglan (Metoclopramide) 10mg Keep good control of your blood sugars. Follow up with your clinic doctor in the next week or so for recheck. Sepsis Event Note (ED) - Focused Exam Vital Signs: Vital Signs Temp Pulse Resp BP Pulse Ox 05/24/21 10:15 97.8 F 75 20 105/58 L 98 - My Orders Last 24 Hours: My Active Orders 05/24/21 10:03 CULTURE BLOOD [BC] Stat 05/24/21 10:07 Blood Glucose Check, Bedside [RC] ONETIME DRUG SCREEN URINE BIORAD [URCHEM] Stat Blood Culture x2 Reflex Set [OM.PC] Stat Peripheral IV Insertion Adult [OM.PC] Stat 05/24/21 10:08 Peripheral IV Care [RC] . DIRECTED UA RFX WILL AND CULT IF INDIC [URIN] Stat Sodium Chloride 0.9% [Saline Flush] 10 ml FLUSH ASDIRECTED PRN 05/24/21 10:26 POC Glucose [Blood Glucose Check, Bedside] [RC] ONETIME 05/24/21 10:54 Blood Glucose Check, Bedside [RC] ONETIME 05/24/21 11:05 CULTURE BLOOD [BC] Stat 05/24/21 11:30 POC Glucose [Blood Glucose Check, Bedside] [RC] ONETIME - Assessment/Plan Last 24 Hours: My Active Orders 05/24/21 10:03 CULTURE BLOOD [BC] Stat 05/24/21 10:07 Blood Glucose Check, Bedside [RC] ONETIME DRUG SCREEN URINE BIORAD [URCHEM] Stat Blood Culture x2 Reflex Set [OM.PC] Stat Peripheral IV Insertion Adult [OM.PC] Stat 05/24/21 10:08 Peripheral IV Care [RC] . DIRECTED UA RFX WILL AND CULT IF INDIC [URIN] Stat Sodium Chloride 0.9% [Saline Flush] 10 ml FLUSH ASDIRECTED PRN 05/24/21 10:26 POC Glucose [Blood Glucose Check, Bedside] [RC] ONETIME 05/24/21 10:54 Blood Glucose Check, Bedside [RC] ONETIME 05/24/21 11:05 CULTURE BLOOD [BC] Stat 05/24/21 11:30 POC Glucose [Blood Glucose Check, Bedside] [RC] ONETIME
[2021-05-24 10:20] VITALS: BP 105/58; PULSE 75
[2021-05-24 10:35] LABS: ANION GAP 13.7 mEq/L (7-13); CHLORIDE,CL 102 mmol/L (98-107); SODIUM,NA 141 mmol/L (136-145)
[2021-05-24 10:56] LABS: CORONAVIRUS COVID-19 NAA NEGATIVE (NEGATIVE)
== END 2021-05-24 11:45 | disposition home or self-care (01) ==
LOC: DL.ED 09:41
DX: R11.2 Nausea with vomiting, unspecified (principal); E10.649 Type 1 diabetes mellitus with hypoglycemia without coma; Z91.018 Allergy to other foods; Z20.822 Contact with and (suspected) exposure to COVID-19
CPT/HCPCS: 0240U; 36415; 80053; 82009; 82150; 82947; 83605; 83690; 83735; 84100; 84484; 85025; 86140; 87040; 96374; 96375; 99284; J2405; J7030

== ENCOUNTER 2021-06-05 09:15 | Emergency (ER) | payer BC ==
--- NOTE | 2021-06-05 09:44 | EDM.PDOC ---
ED HPI GENERAL MEDICAL PROBLEM - General Chief Complaint: Diabetic Complaint Stated Complaint: SEVERE ABDOMINAL PAIN / TYPE 1 DIABETIC Time Seen by Provider: 06/05/21 09:40 Source of Information: Reports: Patient, Family (Mother ), Old Records, RN, RN Notes Reviewed History Limitations: Reports: No Limitations - History of Present Illness INITIAL COMMENTS - FREE TEXT/NARRATIVE: Juan is a 20 y/o male with a history of diabetes mellitus Type I who presents to the ED via personal vehicle with his mother for nausea, vomiting, and abdominal pain. The patient was evaluated in this facility two weeks prior and notes the pain in his abdomen is similar. The patient reports his symptoms completely resolved with Reglan and diet modifications, however two days ago his symptoms again appeared despite continuing on his diet changes and Reglan. Additionally, he notes rigors, cough, sore throat, muscle aches, and transient shortness of breath. He denies vision changes, dizziness, chest pain/pressure, palpitations, dysuria, hematuria, diarrhea, or constipations. The patient reports his BS this morning was 250s for which he took Humalog 10u without breakfast; his took Toujeo 40u HS last night. He attests to smoking cannabis this morning, which he feels helps the pain and loss of appetite; he denies alcohol or tobacco use. abdomen Pain Score (Numeric/FACES): 10 - Related Data Allergies Allergy/AdvReac Type Severity Reaction Status Date / Time gluten AdvReac Abdominal Verified 06/05/21 10:00 Pain Home Meds: Home Meds Insulin Glargine,Hum.Rec.Anlog [Toujeo Solostar] 40 units SQ BEDTIME 08/01/20 [History] Metoclopramide HCl [Reglan] 10 mg PO Q6HR PRN #15 tablet 08/02/20 [Rx] Insulin Lispro [Humalog Kwikpen U-100] 10 units SUBCUT TIDMEALS 12/26/20 [History] Sertraline [Zoloft] 50 mg PO DAILY 05/24/21 [History] Past Medical History HEENT History: Reports: None Cardiovascular History: Reports: None Respiratory History: Reports: None Gastrointestinal History: Reports: Celiac Disease Genitourinary History: Reports: None Musculoskeletal History: Reports: None Neurological History: Reports: None Psychiatric History: Reports: None Endocrine/Metabolic History: Reports: Diabetes, Type I, IDDM Other Endocrine/Metabolic History: DKA Hematologic History: Reports: None Immunologic History: Reports: None Oncologic (Cancer) History: Reports: None Dermatologic History: Reports: Eczema - Infectious Disease History Infectious Disease History: Reports: None - Past Surgical History Head Surgeries/Procedures: Reports: None GI Surgical History: Reports: EGD Endocrine Surgical History: Reports: None Dermatological Surgical History: Reports: None Social & Family History - Family History Family Medical History: No Pertinent Family History Cardiac: Reports: Arrhythmia, CAD, Hypertension Respiratory: Reports: Sleep Apnea Endocrine/Metabolic: Reports: Diabetes, type II, Hypothyroidism - Caffeine Use Caffeine Use: Reports: Energy Drinks, Soda - Sexual History Sexual History: Reports: None - Living Situation & Occupation Living situation: Reports: with Family Occupation: Student ED ROS GENERAL - Review of Systems Review Of Systems: Comprehensive ROS is negative, except as noted in HPI. ED EXAM GENERAL NO PERIP PULSE - Physical Exam Exam: See Below Exam Limited By: No Limitations General Appearance: Alert, Mild Distress (Active dry heaving), Thin Eye Exam: Bilateral Eye: EOMI, Normal Inspection, PERRL (3mm) Ears: Normal External Exam, Hearing Grossly Normal Nose: Normal Inspection, Normal Mucosa, No Blood Throat/Mouth: Normal Inspection, Normal Oropharynx, Normal Voice, No Airway Compromise Head: Atraumatic, Normocephalic Neck: Normal Inspection, Supple, Non-Tender, Full Range of Motion Respiratory/Chest: No Respiratory Distress, Lungs Clear, Normal Breath Sounds, No Accessory Muscle Use, Chest Non-Tender. No: Crackles, Rales, Rhonchi, Wheezing Cardiovascular: Normal Peripheral Pulses, Regular Rate, Rhythm, No Gallop, No Murmur, No Rub GI/Abdominal: Normal Bowel Sounds, Soft, Non-Tender (Pain not worsened by palpation), No Distention, No Abnormal Bruit, No Mass, Pelvis Stable, Guarding. No: Rigid, Rebound (Male) Exam: Deferred Rectal (Males) Exam: Deferred Back Exam: Normal Inspection, Full Range of Motion. No: CVA Tenderness (L), CVA Tenderness (R) Extremities: Normal Inspection, Normal Range of Motion, Non-Tender, No Pedal Edema, Normal Capillary Refill Neurological: Alert, Oriented, CN II-XII Intact, Normal Cognition, Normal Gait, No Motor/Sensory Deficits Psychiatric: Normal Affect, Normal Mood Skin Exam: Warm, Dry, Intact, Normal Color, No Rash. No: Cyanosis, Jaundice, Mottled, Pallor Lymphatic: No Adenopathy Course - Vital Signs Last Recorded V/S: Last Vital Signs Temp 98.7 F 06/05/21 13:38 Pulse 85 06/05/21 13:38 Resp 16 06/05/21 13:38 BP 145/92 H 06/05/21 13:38 Pulse Ox 100 06/05/21 13:38 - Orders/Labs/Meds Labs: Laboratory Tests 06/05/21 06/05/21 06/05/21 Range/Units 09:40 09:40 09:40 WBC 7.2 (5.0-10.0) 10^3/uL RBC 5.27 (4.6-6.2) 10^6/uL Hgb 15.5 (14.0-18.0) g/dL Hct 44.5 (40.0-54.0) % MCV 84.4 (80-100) fL MCH 29.4 (27.0-34.0) pg MCHC 34.8 (33.0-35.0) g/dL Plt Count 318 (150-450) 10^3/uL Neut % (Auto) 68.3 (42.2-75.2) % Lymph % (Auto) 18.1 L (20.5-50.1) % [place] % (Auto) 11.1 H (2-8) % Eos % (Auto) 1.7 (1.0-3.0) % Baso % (Auto) 0.8 (0.0-1.0) % Sodium 138 (136-145) mmol/L Potassium 4.0 (3.5-5.1) mmol/L Chloride 100 (98-107) mmol/L Carbon Dioxide 27 (21-32) mmol/L Anion Gap 15.0 H (7-13) mEq/L BUN 12 (7-18) mg/dL Creatinine 0.93 (0.70-1.30) mg/dL Est Cr Clr Drug Dosing 117.06 mL/min Estimated GFR (MDRD) > 60 BUN/Creatinine Ratio 12.9 (No establ ref range) Glucose 256 H (70-99) mg/dL POC Glucose (70-99) mg/dL Lactic Acid (0.4-2.0) mmol/L Calcium 9.7 (8.5-10.1) mg/dL Magnesium 2.0 (1.8-2.4) mg/dL Total Bilirubin 0.6 (0.2-1.0) mg/dL AST 15 (15-37) U/L ALT 30 (16-63) U/L Alkaline Phosphatase 85 (46-116) U/L C-Reactive Protein < 0.2 (0.0-0.9) mg/dL Total Protein 7.9 (6.4-8.2) g/dL Albumin 4.4 (3.4-5.0) g/dL Globulin 3.5 Albumin/Globulin Ratio 1.3 Amylase 31 (25-115) U/L Lipase 21 L (73-393) U/L Urine Color (YELLOW) Urine Appearance (CLEAR) Urine pH (5.0-9.0) Ur Specific [place] (1.005-1.030) Urine Protein (NEGATIVE) Urine Glucose (UA) (NEGATIVE) Urine Ketones (NEGATIVE) Urine Occult Blood (NEGATIVE) Urine Nitrite (NEGATIVE) Urine Bilirubin (NEGATIVE) Urine Urobilinogen (0.2-1.0) mg/dL Ur Leukocyte Esterase (NEGATIVE) U Hyaline Cast (Auto) Urine RBC (0-5) /HPF Urine WBC (0-5/HPF) /HPF Urine Mucus (NOT SEEN) /LPF Urine Opiates Screen (NEGATIVE) Ur Oxycodone Screen (NEGATIVE) Urine Methadone Screen (NEGATIVE) Ur Barbiturates Screen (NEGATIVE) U Tricyclic Antidepress (NEGATIVE) Ur Phencyclidine Scrn (NEGATIVE) Ur Amphetamine Screen (NEGATIVE) U Methamphetamines Scrn (NEGATIVE) Urine MDMA Screen (NEGATIVE) U Benzodiazepines Scrn (NEGATIVE) Urine Cocaine Screen (NEGATIVE) U Marijuana (THC) Screen (NEGATIVE) Ethyl Alcohol < 3 (0) mg/dL Ketones Negative Influenza Type A RNA Negative (NEGATIVE) Influenza Type B RNA Negative (NEGATIVE) SARS-CoV-2 RNA (GEO) Positive H (NEGATIVE) 06/05/21 06/05/21 06/05/21 Range/Units 09:40 09:47 12:48 WBC (5.0-10.0) 10^3/uL RBC (4.6-6.2) 10^6/uL Hgb (14.0-18.0) g/dL Hct (40.0-54.0) % MCV (80-100) fL MCH (27.0-34.0) pg MCHC (33.0-35.0) g/dL Plt Count (150-450) 10^3/uL Neut % (Auto) (42.2-75.2) % Lymph % (Auto) (20.5-50.1) % [place] % (Auto) (2-8) % Eos % (Auto) (1.0-3.0) % Baso % (Auto) (0.0-1.0) % Sodium (136-145) mmol/L Potassium (3.5-5.1) mmol/L Chloride (98-107) mmol/L Carbon Dioxide (21-32) mmol/L Anion Gap (7-13) mEq/L BUN (7-18) mg/dL Creatinine (0.70-1.30) mg/dL Est Cr Clr Drug Dosing mL/min Estimated GFR (MDRD) BUN/Creatinine Ratio (No establ ref range) Glucose (70-99) mg/dL POC Glucose 241 H 223 H (70-99) mg/dL Lactic Acid 2.2 H* (0.4-2.0) mmol/L Calcium (8.5-10.1) mg/dL Magnesium (1.8-2.4) mg/dL Total Bilirubin (0.2-1.0) mg/dL AST (15-37) U/L ALT (16-63) U/L Alkaline Phosphatase (46-116) U/L C-Reactive Protein (0.0-0.9) mg/dL Total Protein (6.4-8.2) g/dL Albumin (3.4-5.0) g/dL Globulin Albumin/Globulin Ratio Amylase (25-115) U/L Lipase (73-393) U/L Urine Color (YELLOW) Urine Appearance (CLEAR) Urine pH (5.0-9.0) Ur Specific [place] (1.005-1.030) Urine Protein (NEGATIVE) Urine Glucose (UA) (NEGATIVE) Urine Ketones (NEGATIVE) Urine Occult Blood (NEGATIVE) Urine Nitrite (NEGATIVE) Urine Bilirubin (NEGATIVE) Urine Urobilinogen (0.2-1.0) mg/dL Ur Leukocyte Esterase (NEGATIVE) U Hyaline Cast (Auto) Urine RBC (0-5) /HPF Urine WBC (0-5/HPF) /HPF Urine Mucus (NOT SEEN) /LPF Urine Opiates Screen (NEGATIVE) Ur Oxycodone Screen (NEGATIVE) Urine Methadone Screen (NEGATIVE) Ur Barbiturates Screen (NEGATIVE) U Tricyclic Antidepress (NEGATIVE) Ur Phencyclidine Scrn (NEGATIVE) Ur Amphetamine Screen (NEGATIVE) U Methamphetamines Scrn (NEGATIVE) Urine MDMA Screen (NEGATIVE) U Benzodiazepines Scrn (NEGATIVE) Urine Cocaine Screen (NEGATIVE) U Marijuana (THC) Screen (NEGATIVE) Ethyl Alcohol (0) mg/dL Ketones Influenza Type A RNA (NEGATIVE) Influenza Type B RNA (NEGATIVE) SARS-CoV-2 RNA (GEO) (NEGATIVE) 06/05/21 06/05/21 Range/Units 12:50 12:50 WBC (5.0-10.0) 10^3/uL RBC (4.6-6.2) 10^6/uL Hgb (14.0-18.0) g/dL Hct (40.0-54.0) % MCV (80-100) fL MCH (27.0-34.0) pg MCHC (33.0-35.0) g/dL Plt Count (150-450) 10^3/uL Neut % (Auto) (42.2-75.2) % Lymph % (Auto) (20.5-50.1) % [place] % (Auto) (2-8) % Eos % (Auto) (1.0-3.0) % Baso % (Auto) (0.0-1.0) % Sodium (136-145) mmol/L Potassium (3.5-5.1) mmol/L Chloride (98-107) mmol/L Carbon Dioxide (21-32) mmol/L Anion Gap (7-13) mEq/L BUN (7-18) mg/dL Creatinine (0.70-1.30) mg/dL Est Cr Clr Drug Dosing mL/min Estimated GFR (MDRD) BUN/Creatinine Ratio (No establ ref range) Glucose (70-99) mg/dL POC Glucose (70-99) mg/dL Lactic Acid (0.4-2.0) mmol/L Calcium (8.5-10.1) mg/dL Magnesium (1.8-2.4) mg/dL Total Bilirubin (0.2-1.0) mg/dL AST (15-37) U/L ALT (16-63) U/L Alkaline Phosphatase (46-116) U/L C-Reactive Protein (0.0-0.9) mg/dL Total Protein (6.4-8.2) g/dL Albumin (3.4-5.0) g/dL Globulin Albumin/Globulin Ratio Amylase (25-115) U/L Lipase (73-393) U/L Urine Color Dark yellow (YELLOW) Urine Appearance Slightly cloudy (CLEAR) Urine pH 8.5 (5.0-9.0) Ur Specific [place] 1.020 (1.005-1.030) Urine Protein 100 H (NEGATIVE) Urine Glucose (UA) 100 H (NEGATIVE) Urine Ketones 40 H (NEGATIVE) Urine Occult Blood Negative (NEGATIVE) Urine Nitrite Negative (NEGATIVE) Urine Bilirubin Negative (NEGATIVE) Urine Urobilinogen 0.2 (0.2-1.0) mg/dL Ur Leukocyte Esterase Negative (NEGATIVE) U Hyaline Cast (Auto) Few Urine RBC 0-5 (0-5) /HPF Urine WBC 0-5 (0-5/HPF) /HPF Urine Mucus Many H (NOT SEEN) /LPF Urine Opiates Screen Negative (NEGATIVE) Ur Oxycodone Screen Negative (NEGATIVE) Urine Methadone Screen Negative (NEGATIVE) Ur Barbiturates Screen Negative (NEGATIVE) U Tricyclic Antidepress Negative (NEGATIVE) Ur Phencyclidine Scrn Negative (NEGATIVE) Ur Amphetamine Screen Negative (NEGATIVE) U Methamphetamines Scrn Negative (NEGATIVE) Urine MDMA Screen Negative (NEGATIVE) U Benzodiazepines Scrn Negative (NEGATIVE) Urine Cocaine Screen Negative (NEGATIVE) U Marijuana (THC) Screen Positive H (NEGATIVE) Ethyl Alcohol (0) mg/dL Ketones Influenza Type A RNA (NEGATIVE) Influenza Type B RNA (NEGATIVE) SARS-CoV-2 RNA (GEO) (NEGATIVE) Meds: Medications Discontinued Medications Generic Name Dose Route Start Last Admin Trade Name Freq PRN Reason Stop Dose Admin Diphenhydramine HCl 50 mg 06/05/21 11:09 Diphenhydramine 50 Mg/Ml Sdv IVPUSH ASDIRECTED PRN hypersensitivity reaction Famotidine 20 mg 06/05/21 11:09 Famotidine 20 Mg/2 Ml Sdv IVPUSH ASDIRECTED PRN hypersensitivity reaction Sodium Chloride 1,000 mls @ 999 mls/hr 06/05/21 09:52 06/05/21 11:02 Normal Saline IV 06/05/21 10:52 999 mls/hr .BOLUS ONE Infusion CASIRIVIMAB/IMDEVIMAB 10 ml/ 110 mls @ 220 mls/hr 06/05/21 11:09 06/05/21 12:59 Sodium Chloride IV 06/05/21 11:38 220 mls/hr ONETIME ONE Administration Methylprednisolone Sodium Succinate 125 mg 06/05/21 11:09 Methylprednisolone Sodium Succinate 125 Mg/2 Ml Sdv IVPUSH ASDIRECTED PRN hypersensitivity reaction Metoclopramide HCl 10 mg 06/05/21 13:29 06/05/21 13:36 Metoclopramide 10 Mg/2 Ml Sdv IVPUSH 06/05/21 13:30 10 mg ONETIME ONE Administration Ondansetron HCl 4 mg 06/05/21 09:52 06/05/21 10:28 Ondansetron 4 Mg/2 Ml Sdv IVPUSH 06/05/21 09:53 4 mg ONETIME ONE Administration Sodium Chloride 30 ml 06/05/21 11:15 06/05/21 13:30 Sodium Chloride 0.9% 10 Ml Syringe FLUSH 30 ml ASDIRECTED HANG Administration - Re-Assessments/Exams Free Text/Narrative Re-Assessment/Exam: 06/05/21 Zofran 4mg IVP and NS 1L bolus initiated while labs pending. COVID positive. Findings of examination and lab work reviewed with patient. Given patient's history, discussed monoclonal antibody treatment. Patient verbalized understanding and agreement to receive treatment. Will administer Regeneron 600mg/600mg. Patient instructed to follow [place] [facility] guidelines regarding quarantine. Supportive cares for COVID-19 infection discussed. Red flag signs and symptoms which would warrant immediate reevaluation reviewed. Patient verbalized understanding and agreement with the plan of care. Departure - Departure Time of Disposition: 14:42 Disposition: Home, Self-Care 01 Condition: Fair Clinical Impression: Gastroenteritis due to 2019 novel coronavirus, Hyperglycemia, History of diabetes mellitus, type I - Discharge Information *PRESCRIPTION DRUG MONITORING PROGRAM REVIEWED*: Not Applicable *COPY OF PRESCRIPTION DRUG MONITORING REPORT IN PATIENT JIMMIE: Not Applicable Instructions: COVID-19 Vaccine Information, What You Should Know About COVID-19 to Protect Yourself and Others - CDC, 10 Things You Can Do to Manage Your COVID-19 Symptoms at Home - [facility] (01/05/2021) Referrals: PCP,None [Ordering Only Provider] - Forms: ED Department Discharge Additional Instructions: Rx: Zofran ODT 4mg (#20) 1.) Follow [facility] guidelines regarding quarantine. Your first day of quarantine began with the onset of symptoms. 2.) Drink small frequent sips of fluids to stay hydrated while avoiding nausea. 3.) Eat a bland diet, small snack-like meals. 4.) Closely monitor your blood sugars, you may need to dose your insulin more frequently during phases of acute illness. You must wait 90 days after receiving monoclonal antibodies before receiving a Covid 19 immunization. Sepsis Event Note (ED) - Focused Exam Vital Signs: Vital Signs Temp Pulse Resp BP Pulse Ox 06/05/21 13:38 98.7 F 85 16 145/92 H 100 06/05/21 13:20 98.6 F 96 16 144/97 H 100 06/05/21 13:06 98.4 F 84 18 145/88 H 100 06/05/21 09:53 99.2 F 99 20 144/98 H 100
[2021-06-05] MEDS ORDERED: Ondansetron 4 MG/2 ML SDV IVPUSH ONE (09:52)
[2021-06-05] MEDS ORDERED: Sodium Chloride 0.9% 1,000 ML IV ONE (09:52)
[2021-06-05 10:14] LABS: CHLORIDE,CL 100 mmol/L (98-107); SODIUM,NA 138 mmol/L (136-145)
[2021-06-05 10:35] LABS: CORONAVIRUS COVID-19 NAA POSITIVE (NEGATIVE)
[2021-06-05] MEDS ORDERED: methylPREDNISolone Sodium Succinate 125 MG/2 ML SDV IVPUSH PRN (11:09)
[2021-06-05] MEDS ORDERED: diphenhydrAMINE 50 MG/ML SDV IVPUSH PRN (11:09)
[2021-06-05] MEDS ORDERED: Famotidine 20 MG/2 ML SDV IVPUSH PRN (11:09)
[2021-06-05] MEDS ORDERED: Sodium Chloride 0.9% 10 ML Syringe FLUSH SCH (11:15)
[2021-06-05 13:10] LABS: AMPHETAMINES,URINE NEGATIVE (NEGATIVE); BARBITURATES,URINE NEGATIVE (NEGATIVE); BENZODIAZEPINE,URINE NEGATIVE (NEGATIVE); MDMA (ECSTASY), URINE NEGATIVE (NEGATIVE); METHADONE,URINE NEGATIVE (NEGATIVE); METHAMPHETAMINES,URINE NEGATIVE (NEGATIVE); OPIATES,URINE NEGATIVE (NEGATIVE); OXYCODONE,URINE NEGATIVE (NEGATIVE); PHENCYCLIDINE,URINE NEGATIVE (NEGATIVE); TCA,URINE NEGATIVE (NEGATIVE)
[2021-06-05] MEDS ORDERED: Metoclopramide 10 MG/2 ML SDV IVPUSH ONE (13:29)
[2021-06-05 13:40] VITALS: BP 145/92; PULSE 85
== END 2021-06-05 14:30 | disposition home or self-care (01) ==
LOC: DL.ED 09:15
DX: K52.9 Noninfective gastroenteritis and colitis, unspecified (principal); U07.1 COVID-19; E10.65 Type 1 diabetes mellitus with hyperglycemia; Z91.018 Allergy to other foods
CPT/HCPCS: 0240U; 36415; 80053; 80305; 80307; 81001; 82009; 82150; 82947; 83605; 83690; 83735; 85025; 86140; 96374; 96375; 99284; J2405; J2765; J7030; M0243; Q0243

== ENCOUNTER 2021-06-28 06:18 | Day surgery (SDC) | payer BC ==
[~2021-06-28 06:18] MED LIST: Dextrose 5%-0.45% NaCl 1,000 ML IV SCH; Midazolam 1 MG/ML 2 ML SDV ONE; Sodium Chloride 0.9% 10 ML Syringe FLUSH SCH; fentaNYL 100 MCG/2 ML SDV ONE
[2021-06-28] MEDS ORDERED: fentaNYL 100 MCG/2 ML SDV IV ONE ×3 (06:19→07:00)
[2021-06-28] MEDS ORDERED: Midazolam 1 MG/ML 2 ML SDV IV ONE ×4 (06:19→07:02)
[2021-06-28] MEDS ORDERED: Midazolam 1 MG/ML 2 ML SDV ONE (07:24)
--- NOTE | 2021-06-28 08:04 | OR ---
DATE: 06/28/2021 PROCEDURE: Esophagogastroduodenoscopy and multiple pinch biopsies. INSTRUMENT USED: [id number]-[id number] Olympus video panendoscope. PREMEDICATIONS: No oral or topical anesthesia used. Fentanyl 100 mcg intravenous, Versed 2.5 mg intravenous. Nasal O2 cannula. The procedure was done under pulse oximetry, BP recording, and quality assurance monitor final. INDICATIONS: The patient with known celiac disease, on gluten-free diet and also type 1 diabetic with episodes of vomiting, persistent abdominal pain and dyspepsia unexplained and not responsive to medical measures. Esophagogastroduodenoscopy is performed for detection of any active erosive lesions, Guzman esophagus, and/or malignancy also under consideration. H. pylori status to be determined, small bowel biopsies to be obtained for celiac disease, endoscopic hemostasis therapy if needed. PROCEDURE IN DETAIL: The scope was passed with ease. Adequate visualization of the esophagus was made from proximal to distal areas. No upper esophageal lesions identified. No distal esophageal stricture. No uphill or downhill esophageal varices. No Trudy-Salas tear. No esophageal polyp or tumor mass identified. Z-line was seen at around 40 cm distal to the oral verge. Grade A erosive changes were noted by Jack criteria. No proximal gastric varices noted. Gastric fundus examination by retroflexion showed no polypoid lesions. Some fluid retention was noted in the stomach. No gastric ulcer, malignant mass, or vascular ectasia identified. Duodenal bulb showed no ulcer. Visualized second part of the duodenum was unremarkable. Multiple pinch biopsies, 4 in number were taken from different areas of the second part of the duodenum, and tissues were also obtained from the duodenal bulb at 9 and 12 o'clock positions and sent for histopathology. Biopsies were also obtained from the gastric antrum and proximal body and sent for PyloriTek test for H pylori and histopathology. No bleeding was noted from any of the visualized areas at the completion of examination. Photographs were taken of the duodenal bulb, gastric antrum, fundus, and distal esophagus. IMPRESSION: Grade A gastroesophageal reflux disease. The patient tolerated the procedure well. [facility] /[id number] [facility]
[2021-06-28 09:02] VITALS: BP 118/74; PULSE 85
== END 2021-06-28 09:20 | disposition home or self-care (01) ==
LOC: DL.ENDO 06:18
PROVIDERS: ATTEND Internal Medicine Gastroenterology
DX: K29.50 Unspecified chronic gastritis without bleeding (principal); K31.89 Other diseases of stomach and duodenum; I89.0 Lymphedema, not elsewhere classified; I78.1 Nevus, non-neoplastic; K90.0 Celiac disease; K21.9 Gastro-esophageal reflux disease without esophagitis; E10.9 Type 1 diabetes mellitus without complications; F41.1 Generalized anxiety disorder; F32.A Depression, unspecified; F12.90 Cannabis use, unspecified, uncomplicated
CPT/HCPCS: 43239; 87077; J2250; J3010; J7042

== ENCOUNTER 2023-02-22 14:57 | Observation (INO) | payer BC ==
[2023-02-22] MEDS ORDERED: Sodium Chloride 0.9% 1,000 ML IV ONE ×3 (15:17→16:22)
[2023-02-22] MEDS ORDERED: Ondansetron 4 MG/2 ML SDV IV ONE (15:17)
[2023-02-22] MEDS ORDERED: Sodium Chloride 0.9% 10 ML Syringe FLUSH PRN (15:18)
[2023-02-22] MEDS ORDERED: Glucagon,Human Recombinant 1 MG Vial IM PRN (15:26)
[2023-02-22] MEDS ORDERED: 50% Dextrose in Water 50 ML Syringe IVPUSH PRN (15:26)
[2023-02-22] MEDS ORDERED: Metoclopramide 10 MG/2 ML SDV IVPUSH ONE (15:29)
[2023-02-22 15:34] LABS: BASOPHILS PERCENT AUTO 0.2 % (0.0-1.0); HEMATOCRIT 46.4 % (40.0-54.0); HEMOGLOBIN 16.5 g/dL (14.0-18.0); LYMPHOCYTES PERCENT AUTO 5.5 % (20.5-50.1); MEAN CORPUSCULAR HEMOGLOBIN 31.1 pg (27.0-34.0); MEAN CORPUSCULAR HGB CONC 35.6 g/dL (33.0-35.0); MEAN CORPUSCULAR VOLUME 87.5 fL (80-100); MONOCYTES PERCENT AUTO 4.6 % (2-8); NEUTROPHILS PERCENT AUTO 89.7 % (42.2-75.2); PLATELET COUNT,PLT 430 10^3/uL (150-450); WHITE BLOOD CELL COUNT,WBC 18.5 10^3/uL (5.0-10.0)
[2023-02-22 15:40] LABS: O2 DELIVERY DEVICE ROOM AIR
[2023-02-22 15:42] LABS: ALLEN TEST PERFORMED; BASE EXCESS ARTERIAL -5 mmol/L ((-2)-(+3)); BICARBONATE,ARTERIAL 16.8 mmol/L (22-26); O2 SATURATION ARTERIAL 98 % (95-100); PCO2 ARTERIAL 24 mmHg (35-45); PH,ARTERIAL 7.46 (7.35-7.45); PO2 ARTERIAL 92 mmHg (70-100)
[2023-02-22 15:45] LABS: KETONES,BLOOD SMALL-20 mg/dL
[2023-02-22 15:55] LABS: A/G RATIO 1.4; ALANINE AMINOTRANSFERASE,ALT 28 U/L (16-63); ALKALINE PHOSPHATASE 128 U/L (46-116); ANION GAP 24.9 mEq/L (7-13); ASPARTATE AMNIOTRANSFERASE,AST 21 U/L (15-37); BILIRUBIN TOTAL 1.1 mg/dL (0.2-1.0); BLOOD UREA NITROGEN,BUN 21 mg/dL (7-18); BUN/CREATININE RATIO 17.9 (No establ ref range); CALCIUM 9.8 mg/dL (8.5-10.1); CARBON DIOXIDE,CO2 20 mmol/L (21-32); CHLORIDE,CL 94 mmol/L (98-107); CREATININE 1.17 mg/dL (0.70-1.30); GLUCOSE RANDOM 375 mg/dL (70-99); POTASSIUM,K 3.9 mmol/L (3.5-5.1); PROTEIN TOTAL,TP 8.5 g/dL (6.4-8.2); SODIUM,NA 135 mmol/L (136-145)
[2023-02-22 16:03] LABS: C-REACTIVE PROTEIN < 0.2 mg/dL (0.0-0.9); ESTIMATED GFR 90 mL/min (>=60); ETHANOL BLOOD MEDICAL < 3 mg/dL (0); LIPASE < 10 U/L (73-393)
[2023-02-22 16:05] LABS: LACTIC ACID 3.6 mmol/L (0.4-2.0)
[2023-02-22] MEDS: NS with KCl 40mEq 1,000 ML IV SCH ×2 (17:13→21:26)
[2023-02-22 19:53] LABS: CALCIUM 8.3 mg/dL (8.5-10.1); CREATININE 0.77 mg/dL (0.70-1.30); EST CRCL DRUG DOSING (CG) 155.38 mL/min
[2023-02-22] MEDS ORDERED: Melatonin 3 MG Tab PO PRN (20:29)
[2023-02-22 20:38] LABS: APPEARANCE,URINE CLEAR (CLEAR); BILIRUBIN,URINE NEGATIVE (NEGATIVE); COLOR,URINE YELLOW (YELLOW); GLUCOSE,URINE 500 (NEGATIVE); KETONES,URINE >=160 (NEGATIVE); LEUKOCYTE ESTERASE,URINE NEGATIVE (NEGATIVE); NITRITE,URINE NEGATIVE (NEGATIVE); OCCULT BLOOD,URINE NEGATIVE (NEGATIVE); PROTEIN,URINE TRACE (NEGATIVE); UROBILINOGEN,URINE 0.2 mg/dL (0.2-1.0)
[2023-02-22 20:42] LABS: AMPHETAMINES,URINE NEGATIVE (NEGATIVE); BARBITURATES,URINE NEGATIVE (NEGATIVE); BENZODIAZEPINE,URINE NEGATIVE (NEGATIVE); MDMA (ECSTASY), URINE NEGATIVE (NEGATIVE); METHADONE,URINE NEGATIVE (NEGATIVE); METHAMPHETAMINES,URINE NEGATIVE (NEGATIVE); OPIATES,URINE NEGATIVE (NEGATIVE); OXYCODONE,URINE NEGATIVE (NEGATIVE); PHENCYCLIDINE,URINE NEGATIVE (NEGATIVE); TCA,URINE NEGATIVE (NEGATIVE)
[2023-02-22] MEDS: Acetaminophen 325 MG Tab PO PRN (20:50)
[2023-02-22 20:59] LABS: BACTERIA,URINE FEW /HPF (0-FEW/HPF); EPITHELIAL CELLS,URINE FEW /HPF (NOT SEEN); MUCUS,URINE OCCASIONAL /LPF (NOT SEEN); RBC,URINE NOT SEEN /HPF (0-5); WBC,URINE NOT SEEN /HPF (0-5/HPF)
[2023-02-22 22:06] LABS: CREATININE 0.75 mg/dL (0.70-1.30); EST CRCL DRUG DOSING (CG) 159.52 mL/min
[2023-02-23] MEDS: Acetaminophen 325 MG Tab PO PRN (03:28)
[2023-02-23] MEDS ORDERED: Omeprazole 20 MG Cap.CR PO SCH (06:00)
[2023-02-23] MEDS ORDERED: Ondansetron 4 MG/2 ML SDV IVPUSH ONE (06:28)
[2023-02-23 08:42] VITALS: BP 145/97; PULSE 88
== END 2023-02-23 09:40 | disposition home or self-care (01) ==
LOC: DL.ED 14:57 → DL.MS 17:29 → UNDOADMOB 17:29 → DL.MS 17:46 → UNDODISOB 02-23 09:40
PROVIDERS: ADMIT Family Medicine; ATTEND Family Medicine
DX: E10.65 Type 1 diabetes mellitus with hyperglycemia (principal); E10.10 Type 1 diabetes mellitus with ketoacidosis without coma; F90.9 Attention-deficit hyperactivity disorder, unspecified type; F41.9 Anxiety disorder, unspecified; J90 Pleural effusion, not elsewhere classified; K90.0 Celiac disease; K21.9 Gastro-esophageal reflux disease without esophagitis; I10 Essential (primary) hypertension; I25.10 Atherosclerotic heart disease of native coronary artery without angina pectoris; E03.9 Hypothyroidism, unspecified; Z79.4 Long term (current) use of insulin; Z86.16 Personal history of COVID-19; Z79.899 Other long term (current) drug therapy; Z91.018 Allergy to other foods; Z88.8 Allergy status to other drugs, medicaments and biological substances
CPT/HCPCS: 36415; 36600; 71045; 80048; 80053; 80305; 80307; 81001; 82009; 82800; 82803; 82947; 83605; 83690; 84145; 84484; 85025; 86140; 87040; 87804; 93005; 96361; 96374; 96375; 99285; A9270; J1815; J2405; J2765; J3480; J7030; 96376; G0378; J3490

== ENCOUNTER 2023-03-19 10:35 | Observation (INO) | payer BC ==
[2023-03-19] MEDS ORDERED: Sodium Chloride 0.9% 1,000 ML IV ONE (10:50)
[2023-03-19] MEDS ORDERED: Ondansetron 4 MG/2 ML SDV IVPUSH ONE ×2 (10:51→11:26)
[2023-03-19 11:00] LABS: BASOPHILS PERCENT AUTO 0.1 % (0.0-1.0); HEMOGLOBIN 16.1 g/dL (14.0-18.0); LYMPHOCYTES PERCENT AUTO 1.7 % (20.5-50.1); MEAN CORPUSCULAR HEMOGLOBIN 30.3 pg (27.0-34.0); MEAN CORPUSCULAR HGB CONC 34.3 g/dL (33.0-35.0); MEAN CORPUSCULAR VOLUME 88.3 fL (80-100); NEUTROPHILS PERCENT AUTO 95.2 % (42.2-75.2); PLATELET COUNT,PLT 332 10^3/uL (150-450); RED BLOOD CELL COUNT 5.32 10^6/uL (4.6-6.2)
[2023-03-19] MEDS ORDERED: Ketorolac 30 MG/ML SDV IVPUSH ONE (11:03)
[2023-03-19 11:15] LABS: O2 DELIVERY DEVICE ROOM AIR
[2023-03-19 11:16] LABS: KETONES,BLOOD NEGATIVE
[2023-03-19 11:16] LABS: ALLEN TEST positive; BASE EXCESS ARTERIAL -2 mmol/L ((-2)-(+3)); O2 SATURATION ARTERIAL 99 % (95-100); PCO2 ARTERIAL 22 mmHg (35-45); PH,ARTERIAL 7.54 (7.35-7.45); PO2 ARTERIAL 94 mmHg (70-100)
[2023-03-19 11:21] LABS: A/G RATIO 1.3; ALANINE AMINOTRANSFERASE,ALT 27 U/L (16-63); ALBUMIN 4.4 g/dL (3.4-5.0); ALKALINE PHOSPHATASE 93 U/L (46-116); ASPARTATE AMNIOTRANSFERASE,AST 20 U/L (15-37); BILIRUBIN TOTAL 1.3 mg/dL (0.2-1.0); BLOOD UREA NITROGEN,BUN 16 mg/dL (7-18); BUN/CREATININE RATIO 15.4 (No establ ref range); C-REACTIVE PROTEIN 0.53 ng/dL (<=0.30); CALCIUM 9.1 mg/dL (8.5-10.1); CARBON DIOXIDE,CO2 26 mmol/L (21-32); CHLORIDE,CL 100 mmol/L (98-107); CREATININE 1.04 mg/dL (0.70-1.30); EST CRCL DRUG DOSING (CG) 115.04 mL/min; GLUCOSE RANDOM 293 mg/dL (70-99); PROTEIN TOTAL,TP 7.8 g/dL (6.4-8.2); SODIUM,NA 138 mmol/L (136-145)
[2023-03-19 11:22] LABS: ESTIMATED GFR 104 mL/min (>=60); ETHANOL BLOOD MEDICAL < 3 mg/dL (0)
[2023-03-19 11:31] LABS: LACTIC ACID 2.7 mmol/L (0.4-2.0)
[2023-03-19] MEDS ORDERED: Iopamidol 612 MG/ML 100 ML Bottle IVPUSH ONE (11:37)
[2023-03-19] MEDS ORDERED: Lactated Ringers 1,000 ML IV ONE (12:03)
[2023-03-19] MEDS: Iopamidol 612 MG/ML 100 ML Bottle IVPUSH ONE (12:31)
[2023-03-19] MEDS ORDERED: Famotidine 20 MG/2 ML SDV IVPUSH ONE (12:45)
[2023-03-19] MEDS ORDERED: Metoclopramide 10 MG/2 ML SDV IVPUSH ONE (13:22)
[2023-03-19 13:29] LABS: APPEARANCE,URINE CLEAR (CLEAR); BILIRUBIN,URINE NEGATIVE (NEGATIVE); COLOR,URINE YELLOW (YELLOW); GLUCOSE,URINE 500 (NEGATIVE); KETONES,URINE 40 (NEGATIVE); LEUKOCYTE ESTERASE,URINE NEGATIVE (NEGATIVE); NITRITE,URINE NEGATIVE (NEGATIVE); OCCULT BLOOD,URINE NEGATIVE (NEGATIVE); PH,URINE 8.5 (5.0-9.0); PROTEIN,URINE 30 (NEGATIVE); UROBILINOGEN,URINE 0.2 mg/dL (0.2-1.0)
[2023-03-19 13:42] LABS: AMPHETAMINES,URINE NEGATIVE (NEGATIVE); BARBITURATES,URINE NEGATIVE (NEGATIVE); BENZODIAZEPINE,URINE NEGATIVE (NEGATIVE); MDMA (ECSTASY), URINE NEGATIVE (NEGATIVE); METHADONE,URINE NEGATIVE (NEGATIVE); METHAMPHETAMINES,URINE NEGATIVE (NEGATIVE); OPIATES,URINE NEGATIVE (NEGATIVE); OXYCODONE,URINE NEGATIVE (NEGATIVE); PHENCYCLIDINE,URINE NEGATIVE (NEGATIVE); TCA,URINE NEGATIVE (NEGATIVE)
[2023-03-19 13:43] LABS: AMORPHOUS SEDIMENT,URINE FEW /HPF (NOT SEEN); BACTERIA,URINE RARE /HPF (0-FEW/HPF); EPITHELIAL CELLS,URINE RARE /HPF (NOT SEEN); MUCUS,URINE FEW /LPF (NOT SEEN); RBC,URINE 0-5 /HPF (0-5); WBC,URINE 0-5 /HPF (0-5/HPF)
[2023-03-19] MEDS ORDERED: Pantoprazole 40 MG Vial IVPUSH ONE ×2 (13:44→18:00)
[2023-03-19] MEDS ORDERED: Acetaminophen/oxyCODONE 325-5 MG Tab PO PRN (13:44)
[2023-03-19] MEDS ORDERED: Temazepam 15 MG Cap PO PRN (13:44)
[2023-03-19] MEDS ORDERED: Acetaminophen 325 MG Tab PO PRN (13:44)
[2023-03-19] MEDS ORDERED: HYDROmorphone 0.5 MG/0.5 ML Syringe IVPUSH PRN (13:44)
[2023-03-19] MEDS ORDERED: Naloxone 2 MG/2 ML Syringe IVPUSH PRN (13:44)
[2023-03-19] MEDS ORDERED: Albuterol/Ipratropium 3.0-0.5 MG/3 ML Neb Soln NEB PRN (13:44)
[2023-03-19] MEDS ORDERED: Metoclopramide 10 MG/2 ML SDV IVPUSH PRN (13:48)
[2023-03-19] MEDS ORDERED: Scopolamine 1.5 MG Transdermal Patch TOP ONE ×2 (13:48→18:00)
[2023-03-19] MEDS ORDERED: Glucagon,Human Recombinant 1 MG Vial IM PRN (13:49)
[2023-03-19] MEDS ORDERED: Capsaicin 0.025% Crm 60 GM Tube TOP PRN (13:49)
[2023-03-19] MEDS ORDERED: 50% Dextrose in Water 50 ML Syringe IVPUSH PRN (13:49)
[2023-03-19] MEDS: Insulin Lispro 100 Units/ML 3 ML Vial SUBCUT SCH ×2 (16:48→20:26)
[2023-03-19] MEDS: Dextrose 5%-0.9% NaCl 1,000 ML IV SCH (18:13)
[2023-03-19] MEDS ORDERED: Melatonin 3 MG Tab PO PRN (19:02)
[2023-03-19] MEDS ORDERED: LOSARTAN 100 MG PO SCH (21:00)
[2023-03-19] MEDS ORDERED: GABAPENTIN 300 MG PO SCH (21:00)
[2023-03-20] MEDS: Insulin Lispro 100 Units/ML 3 ML Vial SUBCUT SCH ×2 (02:14→08:35)
[2023-03-20] MEDS: Dextrose 5%-0.9% NaCl 1,000 ML IV SCH (06:15)
[2023-03-20 06:19] LABS: BASOPHILS PERCENT AUTO 0.1 % (0.0-1.0); HEMATOCRIT 42.8 % (40.0-54.0); HEMOGLOBIN 14.2 g/dL (14.0-18.0); LYMPHOCYTES PERCENT AUTO 11.4 % (20.5-50.1); MEAN CORPUSCULAR HEMOGLOBIN 30.5 pg (27.0-34.0); MEAN CORPUSCULAR HGB CONC 33.2 g/dL (33.0-35.0); MONOCYTES PERCENT AUTO 9.9 % (2-8); NEUTROPHILS PERCENT AUTO 77.6 % (42.2-75.2); PLATELET COUNT,PLT 317 10^3/uL (150-450); RED BLOOD CELL COUNT 4.65 10^6/uL (4.6-6.2); WHITE BLOOD CELL COUNT,WBC 13.5 10^3/uL (5.0-10.0)
[2023-03-20 06:47] LABS: A/G RATIO 1.1; ALBUMIN 3.5 g/dL (3.4-5.0); BILIRUBIN TOTAL 0.6 mg/dL (0.2-1.0); BUN/CREATININE RATIO 14.8 (No establ ref range); CALCIUM 8.3 mg/dL (8.5-10.1); CREATININE 0.81 mg/dL (0.70-1.30); EST CRCL DRUG DOSING (CG) 147.7 mL/min; MAGNESIUM 1.8 mg/dL (1.8-2.4); PROTEIN TOTAL,TP 6.7 g/dL (6.4-8.2)
[2023-03-20] MEDS: Iopamidol 612 MG/ML 100 ML Bottle IVPUSH ONE (08:27)
[2023-03-20] MEDS ORDERED: Pantoprazole 40 MG Tab.CR PO SCH (09:00)
[2023-03-20] MEDS ORDERED: [UNRECOGNIZED DRUG - OTHER] SUBCUT SCH (09:00)
[2023-03-20] MEDS ORDERED: INSULIN PUMP SCH (09:00)
[2023-03-20] MEDS ORDERED: INSULIN LISPRO 100 UNIT/ML SUBCUT SCH (09:00)
[2023-03-20] MEDS ORDERED: INSULN SUBCUT SCH (09:00)
[2023-03-20 10:19] VITALS: BP 125/63; PULSE 67
== END 2023-03-20 10:37 | disposition home or self-care (01) ==
LOC: DL.ED 10:35 → DL.MS 13:43
PROVIDERS: ADMIT Internal Medicine; ATTEND Internal Medicine
DX: E10.43 Type 1 diabetes mellitus with diabetic autonomic (poly)neuropathy (principal); K31.84 Gastroparesis; R65.10 Systemic inflammatory response syndrome (SIRS) of non-infectious origin without acute organ dysfunction; E10.65 Type 1 diabetes mellitus with hyperglycemia; R00.0 Tachycardia, unspecified; R06.82 Tachypnea, not elsewhere classified; E87.20 Acidosis, unspecified; E80.6 Other disorders of bilirubin metabolism; D72.829 Elevated white blood cell count, unspecified; F12.10 Cannabis abuse, uncomplicated; N28.1 Cyst of kidney, acquired; K59.00 Constipation, unspecified; K21.9 Gastro-esophageal reflux disease without esophagitis; F90.9 Attention-deficit hyperactivity disorder, unspecified type; F32.9 Major depressive disorder, single episode, unspecified; F41.9 Anxiety disorder, unspecified; G47.00 Insomnia, unspecified; G43.909 Migraine, unspecified, not intractable, without status migrainosus; I10 Essential (primary) hypertension; Z88.8 Allergy status to other drugs, medicaments and biological substances; Z79.4 Long term (current) use of insulin; Z79.899 Other long term (current) drug therapy
CPT/HCPCS: 36415; 36600; 74177; 80053; 80305-QW; 80307; 81001; 82009; 82803; 82947; 83605; 83690; 83735; 85025; 86140; 87040; 99222; 99238; A9270-GY; C9113; J1815-GY; J1885; J2405; J2765; J3490; J7030; J7042; J7120; Q9967

== ENCOUNTER 2023-12-13 09:23 | Emergency (ER) | payer BC ==
[2023-12-13] MEDS: Sodium Chloride 0.9% 2,000 ML IV ONE (09:43)
[2023-12-13 09:47] LABS: O2 DELIVERY DEVICE ROOM AIR
[2023-12-13 09:48] LABS: BASOPHILS PERCENT AUTO 0.8 % (0.0-1.0); EOSINOPHILS PERCENT AUTO 1.7 % (1.0-3.0); HEMATOCRIT 47.6 % (40.0-54.0); LYMPHOCYTES PERCENT AUTO 17.9 % (20.5-50.1); MEAN CORPUSCULAR HEMOGLOBIN 29.5 pg (27.0-34.0); MEAN CORPUSCULAR HGB CONC 35.7 g/dL (33.0-35.0); MEAN CORPUSCULAR VOLUME 82.5 fL (80-100); MONOCYTES PERCENT AUTO 5.8 % (2-8); NEUTROPHILS PERCENT AUTO 73.8 % (42.2-75.2); PLATELET COUNT,PLT 355 10^3/uL (150-450); RED BLOOD CELL COUNT 5.77 10^6/uL (4.6-6.2); WHITE BLOOD CELL COUNT,WBC 11.8 10^3/uL (5.0-10.0)
[2023-12-13] MEDS: Famotidine 20 MG/2 ML SDV IVPUSH ONE (09:48)
[2023-12-13] MEDS: Ondansetron 4 MG/2 ML SDV IVPUSH ONE (09:48)
[2023-12-13 09:55] LABS: BICARBONATE,VENOUS 12 mmol/l (19-25); O2 SATURATION VENOUS 95.2 % (60-80); PCO2 VENOUS 25 mmHg (41-51); PH,VENOUS 7.32 (7.31-7.41); PO2 VENOUS 82 mmHg (35-42)
[2023-12-13 10:12] LABS: A/G RATIO 1.1; ALANINE AMINOTRANSFERASE,ALT 22 U/L (16-63); ALBUMIN 4.6 g/dL (3.4-5.0); ALKALINE PHOSPHATASE 139 U/L (46-116); ANION GAP 30.2 mEq/L (7-13); ASPARTATE AMNIOTRANSFERASE,AST 16 U/L (15-37); BILIRUBIN TOTAL 0.6 mg/dL (0.2-1.0); BLOOD UREA NITROGEN,BUN 23 mg/dL (7-18); BUN/CREATININE RATIO 19.2 (No establ ref range); CALCIUM 9.6 mg/dL (8.5-10.1); CARBON DIOXIDE,CO2 12 mmol/L (21-32); CHLORIDE,CL 96 mmol/L (98-107); EST CRCL DRUG DOSING (CG) 95.74 mL/min; LIPASE 13 U/L (16-77); MAGNESIUM 1.8 mg/dL (1.8-2.4); POTASSIUM,K 4.2 mmol/L (3.5-5.1); PROTEIN TOTAL,TP 8.6 g/dL (6.4-8.2); SODIUM,NA 134 mmol/L (136-145)
[2023-12-13 10:25] LABS: ESTIMATED GFR 87 mL/min (>=60); ETHANOL BLOOD MEDICAL < 3 mg/dL (0); GLUCOSE RANDOM 453 mg/dL (70-99)
[2023-12-13] MEDS: Iopamidol 612 MG/ML 100 ML Bottle IVPUSH ONE (11:08)
[2023-12-13 11:35] LABS: APPEARANCE,URINE CLEAR (CLEAR); BILIRUBIN,URINE NEGATIVE (NEGATIVE); COLOR,URINE YELLOW (YELLOW); GLUCOSE,URINE 500 (NEGATIVE); KETONES,URINE >=160 (NEGATIVE); LEUKOCYTE ESTERASE,URINE NEGATIVE (NEGATIVE); NITRITE,URINE NEGATIVE (NEGATIVE); OCCULT BLOOD,URINE TRACE-INTACT (NEGATIVE); PH,URINE 5.5 (5.0-9.0); PROTEIN,URINE 30 (NEGATIVE); UROBILINOGEN,URINE 0.2 mg/dL (0.2-1.0)
[2023-12-13 11:39] LABS: AMPHETAMINES,URINE NEGATIVE (NEGATIVE); BARBITURATES,URINE NEGATIVE (NEGATIVE); BENZODIAZEPINE,URINE NEGATIVE (NEGATIVE); MDMA (ECSTASY), URINE NEGATIVE (NEGATIVE); METHADONE,URINE NEGATIVE (NEGATIVE); METHAMPHETAMINES,URINE NEGATIVE (NEGATIVE); OPIATES,URINE NEGATIVE (NEGATIVE); OXYCODONE,URINE NEGATIVE (NEGATIVE); PHENCYCLIDINE,URINE NEGATIVE (NEGATIVE); TCA,URINE NEGATIVE (NEGATIVE)
[2023-12-13] MEDS: Promethazine 25 MG/ML SDV IM ONE (11:40)
[2023-12-13] MEDS: cefTRIAXone 1 GM Vial IVPUSH ONE (11:45)
[2023-12-13 11:52] LABS: BACTERIA,URINE RARE /HPF (0-FEW/HPF); EPITHELIAL CELLS,URINE NOT SEEN /HPF (NOT SEEN); RBC,URINE 0-5 /HPF (0-5); WBC,URINE NOT SEEN /HPF (0-5/HPF)
[2023-12-13] MEDS ORDERED: Glucagon,Human Recombinant 1 MG Vial IM PRN (11:56)
[2023-12-13] MEDS ORDERED: 50% Dextrose in Water 50 ML Syringe IVPUSH PRN (11:56)
[2023-12-13] MEDS: Sodium Chloride 0.9% 1,000 ML IV ONE (12:11)
[2023-12-13] MEDS: Morphine 2 MG/ML SYRINGE IVPUSH ONE (12:54)
== END 2023-12-13 13:05 ==
LOC: DL.ED 09:23
DX: K52.9 Noninfective gastroenteritis and colitis, unspecified (principal); E10.10 Type 1 diabetes mellitus with ketoacidosis without coma; E86.0 Dehydration; Z88.8 Allergy status to other drugs, medicaments and biological substances; Z91.018 Allergy to other foods; Z79.4 Long term (current) use of insulin; Z79.899 Other long term (current) drug therapy
CPT/HCPCS: 36415; 74177; 80053; 80305-QW; 80307; 81001; 82803; 82947; 83690; 83735; 84484; 85025; 93005; 96361; 96372; 96374; 96375; 99285-25; J0696; J1815-GY; J2270; J2405; J2550; J3490; J7030; Q9967

== ENCOUNTER 2024-01-30 05:08 | Emergency (ER) | payer BC ==
[2024-01-30 05:21] VITALS: BP 124/64
[2024-01-30] MEDS ORDERED: Glucagon,Human Recombinant 1 MG Vial IM PRN ×3 (05:26→06:55)
[2024-01-30] MEDS ORDERED: 50% Dextrose in Water 50 ML Syringe IVPUSH PRN ×3 (05:26→06:55)
[2024-01-30 05:34] LABS: HEMATOCRIT 49.6 % (40.0-54.0); HEMOGLOBIN 15.6 g/dL (14.0-18.0); MEAN CORPUSCULAR HEMOGLOBIN 30.1 pg (27.0-34.0); MEAN CORPUSCULAR HGB CONC 31.5 g/dL (33.0-35.0); MEAN CORPUSCULAR VOLUME 95.8 fL (80-100); PLATELET COUNT,PLT 354 10^3/uL (150-450); RED BLOOD CELL COUNT 5.18 10^6/uL (4.6-6.2); WHITE BLOOD CELL COUNT,WBC 38.8 10^3/uL (5.0-10.0)
[2024-01-30] MEDS: Insulin Lispro 100 Units/ML 3 ML Vial SUBCUT ONE (05:35)
[2024-01-30] MEDS: Metoclopramide 10 MG/2 ML SDV IVPUSH ONE (05:36)
[2024-01-30] MEDS: Lactated Ringers 1,000 ML IV ONE ×3 (05:36→06:30)
[2024-01-30 05:39] LABS: BASOPHILS PERCENT AUTO 0.3 % (0.0-1.0); EOSINOPHILS PERCENT AUTO 0.1 % (1.0-3.0); LYMPHOCYTES PERCENT AUTO 7.2 % (20.5-50.1); MONOCYTES PERCENT AUTO 8.5 % (2-8); NEUTROPHILS PERCENT AUTO 83.9 % (42.2-75.2)
[2024-01-30 05:44] LABS: LYMPHOCYTES PERCENT MAN 8 % (20-50); MONOCYTES PERCENT MAN 8 % (2-8); SEG NEUTROPHILS PERCENT MAN 84 % (42-75)
[2024-01-30 06:04] VITALS: PULSE 145
[2024-01-30] MEDS: Insulin Glarg,Human.Rec.Analog 100 Unit/ML 10 ML Vial SUBCUT ONE (06:07)
[2024-01-30 06:21] LABS: POTASSIUM,K 6.2 mmol/L (3.5-5.1)
[2024-01-30] MEDS: Piperacillin/Tazobactam 4.5 GM in Sodium Chloride 0.9% 100 ML IV ONE (06:30)
[2024-01-30 06:47] LABS: LACTIC ACID 7.5 mmol/L (0.4-2.0)
[2024-01-30 06:48] LABS: A/G RATIO 1.18; ANION GAP 39.2 mEq/L (7-13); BILIRUBIN TOTAL 0.8 mg/dL (0.2-1.0); BUN/CREATININE RATIO 16.1 (No establ ref range); CALCIUM 8.7 mg/dL (8.5-10.1); CREATININE 2.23 mg/dL (0.70-1.30); EST CRCL DRUG DOSING (CG) 54.87 mL/min; PROTEIN TOTAL,TP 7.4 g/dL (6.4-8.2)
[2024-01-30 07:07] LABS: APPEARANCE,URINE CLEAR (CLEAR); BILIRUBIN,URINE NEGATIVE (NEGATIVE); COLOR,URINE YELLOW (YELLOW); GLUCOSE,URINE 500 (NEGATIVE); KETONES,URINE 80 (NEGATIVE); LEUKOCYTE ESTERASE,URINE NEGATIVE (NEGATIVE); NITRITE,URINE NEGATIVE (NEGATIVE); OCCULT BLOOD,URINE NEGATIVE (NEGATIVE); PH,URINE 5.5 (5.0-9.0); PROTEIN,URINE NEGATIVE (NEGATIVE); UROBILINOGEN,URINE 0.2 mg/dL (0.2-1.0)
[2024-01-30 07:38] LABS: O2 DELIVERY DEVICE ROOM AIR
[2024-01-30 07:39] LABS: PH,VENOUS 7.24 (7.31-7.41)
[2024-01-30] MEDS: diphenhydrAMINE 50 MG/ML SDV IVPUSH ONE (07:39)
[2024-01-30 07:40] LABS: BASE EXCESS VENOUS -16.8 mmol/l ((-2)-(+3)); BICARBONATE,VENOUS 9 mmol/l (19-25); O2 SATURATION VENOUS 99.8 % (60-80); PCO2 VENOUS 22 mmHg (41-51); PO2 VENOUS 208 mmHg (35-42)
[2024-01-30 07:53] LABS: AMPHETAMINES,URINE NEGATIVE (NEGATIVE); BARBITURATES,URINE NEGATIVE (NEGATIVE); BENZODIAZEPINE,URINE NEGATIVE (NEGATIVE); MDMA (ECSTASY), URINE NEGATIVE (NEGATIVE); METHADONE,URINE NEGATIVE (NEGATIVE); METHAMPHETAMINES,URINE NEGATIVE (NEGATIVE); OPIATES,URINE NEGATIVE (NEGATIVE); OXYCODONE,URINE NEGATIVE (NEGATIVE); PHENCYCLIDINE,URINE NEGATIVE (NEGATIVE); TCA,URINE NEGATIVE (NEGATIVE)
[2024-01-30] MEDS: Vancomycin 2 GM in Sodium Chloride 0.9% 500 ML IV ONE (08:10)
[2024-01-30] MEDS: Sodium Chloride 0.9% 1,000 ML IV SCH (08:10)
[2024-01-30] MEDS: Vancomycin 1 GM SDV ONE (08:16)
[2024-01-30 08:47] LABS: A/G RATIO 1.2; ANION GAP 31.2 mEq/L (7-13); BILIRUBIN TOTAL 0.9 mg/dL (0.2-1.0); BUN/CREATININE RATIO 17.6 (No establ ref range); CALCIUM 8.8 mg/dL (8.5-10.1); CREATININE 2.04 mg/dL (0.70-1.30); EST CRCL DRUG DOSING (CG) 59.98 mL/min; POTASSIUM,K 4.2 mmol/L (3.5-5.1); PROTEIN TOTAL,TP 7.4 g/dL (6.4-8.2)
== END 2024-01-30 08:43 ==
LOC: DL.ED 05:08
DX: A41.9 Sepsis, unspecified organism (principal); N17.9 Acute kidney failure, unspecified; R65.20 Severe sepsis without septic shock; E10.10 Type 1 diabetes mellitus with ketoacidosis without coma; D72.829 Elevated white blood cell count, unspecified; E86.0 Dehydration; E87.8 Other disorders of electrolyte and fluid balance, not elsewhere classified; F17.210 Nicotine dependence, cigarettes, uncomplicated; Z91.018 Allergy to other foods; Z88.8 Allergy status to other drugs, medicaments and biological substances; Z79.4 Long term (current) use of insulin; Z79.899 Other long term (current) drug therapy
CPT/HCPCS: 36415; 71046; 80053; 80305; 81003; 82009; 82803; 82947; 83605; 83735; 85025; 87040; 87635; 87804; 96361; 96365; 96367; 96375; 99285; J1200; J1815; J2543; J2765; J3370; J3490; J7030; J7040; J7120; U0002

== ENCOUNTER 2024-04-25 02:38 | Emergency (ER) | payer BC ==
[2024-04-25] MEDS: Ondansetron 4 MG in Sodium Chloride 0.9% 50 ML IV ONE (03:00)
[2024-04-25] MEDS: Sodium Chloride 0.9% 1,000 ML IV ONE (03:02)
[2024-04-25] MEDS: Ondansetron 4 MG/2 ML SDV IVPUSH ONE (03:02)
[2024-04-25 03:07] LABS: BASOPHILS PERCENT AUTO 0.2 % (0.0-1.0); HEMATOCRIT 45.6 % (40.0-54.0); HEMOGLOBIN 15.6 g/dL (14.0-18.0); LYMPHOCYTES PERCENT AUTO 6.9 % (20.5-50.1); MEAN CORPUSCULAR HEMOGLOBIN 28.8 pg (27.0-34.0); MEAN CORPUSCULAR HGB CONC 34.2 g/dL (33.0-35.0); MEAN CORPUSCULAR VOLUME 84.3 fL (80-100); MONOCYTES PERCENT AUTO 6.7 % (2-8); NEUTROPHILS PERCENT AUTO 86.2 % (42.2-75.2); PLATELET COUNT,PLT 380 10^3/uL (150-450); RED BLOOD CELL COUNT 5.41 10^6/uL (4.6-6.2); WHITE BLOOD CELL COUNT,WBC 18.6 10^3/uL (5.0-10.0)
[2024-04-25 03:08] LABS: O2 DELIVERY DEVICE ROOM AIR
[2024-04-25] MEDS: diphenhydrAMINE 50 MG/ML SDV IVPUSH ONE (03:18)
[2024-04-25] MEDS: Haloperidol Lactate 5 MG/ML SDV IVPUSH ONE (03:19)
[2024-04-25 03:24] LABS: ANION GAP 20.7 mEq/L (7-13); BLOOD UREA NITROGEN,BUN 20 mg/dL (7-18); CALCIUM 9.6 mg/dL (8.5-10.1); CARBON DIOXIDE,CO2 23 mmol/L (21-32); CHLORIDE,CL 94 mmol/L (98-107); CREATININE 1.16 mg/dL (0.70-1.30); EST CRCL DRUG DOSING (CG) 108.71 mL/min; GLUCOSE RANDOM 300 mg/dL (70-99); POTASSIUM,K 3.7 mmol/L (3.5-5.1); SODIUM,NA 134 mmol/L (136-145)
[2024-04-25 03:27] LABS: ESTIMATED GFR 91 mL/min (>=60)
[2024-04-25 03:40] LABS: KETONES,BLOOD SMALL-20 mg/dL
[2024-04-25 03:45] LABS: BASE EXCESS VENOUS -1.2 mmol/l ((-2)-(+3)); BICARBONATE,VENOUS 20 mmol/l (19-25); PCO2 VENOUS 27 mmHg (41-51); PH,VENOUS 7.49 (7.31-7.41); PO2 VENOUS 111 mmHg (35-42)
[2024-04-25] MEDS: Lactated Ringers 1,000 ML IV SCH (04:00)
[2024-04-25] MEDS: Potassium Chloride 20 MEQ in Premix Bag 1 BAG IV ONE (04:01)
[2024-04-25 04:03] LABS: LACTIC ACID 1.7 mmol/L (0.4-2.0)
[2024-04-25 06:23] VITALS: BP 138/76; PULSE 106
== END 2024-04-25 06:18 ==
LOC: DL.ED 02:38
DX: R11.2 Nausea with vomiting, unspecified (principal); F12.10 Cannabis abuse, uncomplicated; E86.0 Dehydration; E10.9 Type 1 diabetes mellitus without complications; Z88.8 Allergy status to other drugs, medicaments and biological substances; Z79.4 Long term (current) use of insulin; Z79.899 Other long term (current) drug therapy
CPT/HCPCS: 36415; 80048; 82009; 82803; 82947; 83605; 83690; 85025; 93005; 93010; 96361; 96365; 96366; 96375; 99284; J1200; J1630; J2405; J3480; J7030; J7120

== ENCOUNTER 2025-05-02 06:40 | Emergency (ER) | payer BC ==
[2025-05-02 07:45] LABS: BASOPHILS PERCENT AUTO 0.2 % (0.0-1.0); EOSINOPHILS PERCENT AUTO 0.1 % (1.0-3.0); LYMPHOCYTES PERCENT AUTO 6.4 % (20.5-50.1); MONOCYTES PERCENT AUTO 6.9 % (2-8); NEUTROPHILS PERCENT AUTO 86.4 % (42.2-75.2); PLATELET COUNT,PLT 363 10^3/uL (150-450); RED BLOOD CELL COUNT 5.14 10^6/uL (4.6-6.2); WHITE BLOOD CELL COUNT,WBC 16.2 10^3/uL (5.0-10.0)
[2025-05-02] MEDS: Lactated Ringers 2,000 ML IV ONE (07:49)
[2025-05-02] MEDS: Ondansetron 4 MG/2 ML SDV IVPUSH ONE ×2 (07:49→09:25)
[2025-05-02 07:54] LABS: A/G RATIO 1.0; ALANINE AMINOTRANSFERASE,ALT 46 U/L (16-63); ASPARTATE AMNIOTRANSFERASE,AST 49 U/L (15-37); BILIRUBIN TOTAL 0.7 mg/dL (0.2-1.0); BLOOD UREA NITROGEN,BUN 11 mg/dL (7-18); CARBON DIOXIDE,CO2 29 mmol/L (21-32); CHLORIDE,CL 97 mmol/L (98-107); CREATININE 0.92 mg/dL (0.70-1.30); EST CRCL DRUG DOSING (CG) 123.81 mL/min; GLUCOSE RANDOM 175 mg/dL (70-99); POTASSIUM,K 3.2 mmol/L (3.5-5.1); PROTEIN TOTAL,TP 8.1 g/dL (6.4-8.2); SODIUM,NA 139 mmol/L (136-145)
[2025-05-02 07:55] LABS: ESTIMATED GFR 119 mL/min (>=60); ETHANOL BLOOD MEDICAL < 3 mg/dL (0)
[2025-05-02 07:56] LABS: O2 DELIVERY DEVICE ROOM AIR
[2025-05-02 08:01] LABS: PCO2 VENOUS 49 mmHg (41-51); PH,VENOUS 7.43 (7.31-7.41); PO2 VENOUS 60 mmHg (35-42)
[2025-05-02 08:02] LABS: BASE EXCESS VENOUS 6.2 mmol/l ((-2)-(+3)); BICARBONATE,VENOUS 32 mmol/l (19-25); O2 SATURATION VENOUS 91.2 % (60-80)
[2025-05-02] MEDS: Potassium Chloride 10% 20 MEQ/15 ML Soln 15 ML UD Cup PO SCH (08:52)
[2025-05-02] MEDS: Potassium Chloride 10% 20 MEQ/15 ML Soln 15 ML UD Cup ONE (08:52)
[2025-05-02 09:04] LABS: APPEARANCE,URINE CLEAR (CLEAR); GLUCOSE,URINE 500 (NEGATIVE); OCCULT BLOOD,URINE NEGATIVE (NEGATIVE)
[2025-05-02 09:11] LABS: AMPHETAMINES,URINE NEGATIVE (NEGATIVE); BARBITURATES,URINE NEGATIVE (NEGATIVE); MDMA (ECSTASY), URINE NEGATIVE (NEGATIVE); METHAMPHETAMINES,URINE NEGATIVE (NEGATIVE); OPIATES,URINE NEGATIVE (NEGATIVE); OXYCODONE,URINE NEGATIVE (NEGATIVE); PHENCYCLIDINE,URINE NEGATIVE (NEGATIVE); TCA,URINE NEGATIVE (NEGATIVE)
[2025-05-02] MEDS: diphenhydrAMINE 50 MG/ML SDV IVPUSH ONE (09:49)
[2025-05-02 10:11] LABS: EPITHELIAL CELLS,URINE RARE /HPF (NOT SEEN)
[2025-05-02] MEDS: Potassium Chloride 10 MEQ in Premix Bag 2 BAG IV ONE (10:48)
[2025-05-02 11:22] VITALS: BP 128/82; PULSE 96
[2025-05-02] MEDS: Potassium Chloride 10 MEQ Tab.ER PO ONE (11:32)
== END 2025-05-02 12:55 | disposition home or self-care (01) ==
LOC: DL.ED 06:40
DX: R11.16 Cannabis hyperemesis syndrome (principal); R11.2 Nausea with vomiting, unspecified; E87.6 Hypokalemia; E10.9 Type 1 diabetes mellitus without complications; Z88.8 Allergy status to other drugs, medicaments and biological substances; Z91.018 Allergy to other foods; Z79.4 Long term (current) use of insulin; Z79.899 Other long term (current) drug therapy
CPT/HCPCS: 36415; 80053; 80305; 80307; 81001; 82009; 82803; 82947; 83690; 83735; 84132; 85025; 96361; 96365; 96366; 96375; 96376; 99284; A9270; J1200; J1630; J2405; J2765; J3480; J7120